=== PATIENT | male | born 1960 | race Caucasian/White ===

== ENCOUNTER 2023-11-07 07:58 | Emergency (ER) | payer MEDICARE, OTHER, SELFPAY ==
[2023-11-07 08:10] VITALS: BP 118/84
--- NOTE | 2023-11-07 08:16 | ED.GENMED ---
History of Present Illness
General
Chief Complaint: Heart Rate Problem
Time Seen by Provider: 11/07/23 08:16
History of Present Illness
History of Present Illness:
HPI: Patient has history of A-fib 30 years ago (not on any medications) and feels that his heart was fluttering as he woke up at 6 AM. He never had any chest pain or pressure. He says he feels well-hydrated. He was out in the heat for several
hours yesterday but frequently was drinking water. He had COVID about a week ago and still has some minimal congestion.
EXAM:
GENERAL: Well appearing in no distress
HEENT: Moist oral mucosa
CARDIOVASCULAR: No murmurs, normal heart rate, regular rhythm, No chest wall tenderness
PULMONARY: No respiratory distress, breath sounds are clear and equal
ABDOMEN: Soft with no peritoneal signs, no tenderness
NEUROLOGIC: Excellent strength all extremities, no coordination deficits
PSYCHIATRIC: Appropriate mental status, normal insight and judgement
EXTREMITIES: Nontender, no edema, moves all extremities equally
SKIN: No rash, no lesions
TIME OF INITIAL ENCOUNTER: 8:20 AM
NUMBER AND COMPLEXITY OF PROBLEMS ADDRESSED AT THE ENCOUNTER
� Chronic conditions affecting care: Remote history of A-fib not currently anticoagulated
� Acute Exacerbation and/or Progression of Chronic Illness: This is an acute problem
� Differential Diagnosis includes: Electrolyte normality, dehydration, thyroid disease, recurrence of A-fib
AMOUNT AND/OR COMPLEXITY OF DATA TO BE REVIEWED AND ANALYZED
� I performed an independent evaluation of and my interpretation is:
EKG: Sinus 78, left axis deviation, no acute ST abnormality
CT:
X-rays:
Laboratory Studies: CBC normal, BUN slightly elevated, TSH, magnesium, potassium all normal
Other:
� Review of other/old records: The patient had colonoscopy in 2022 and some polyps were removed at that time
� Clinical information was obtained by an independent historian: Spoke to at bedside
� Prescriptions/Medications Considered but not given:
� Further testing considered but not performed:
RISK OF COMPLICATIONS AND/OR MORBIDITY OR MORTALITY OF PATIENT MANAGEMENT
� Social determinants of health affecting care: Lives at home
� Discussion with other providers:
� Escalation of care including admission/observation vs risk of discharge considered: Throughout patient stay in the ED, there is been no sign of dysrhythmia. Basic labs normal. He states he has seen a electrical repairer through
[employer] in the past but greater than 5 years ago. He says he has their contact information at home and I encouraged him to follow-up with them as well.
Past History
Past History
ED Past Medical History: Arrthythmia (a-fib >20yrs)
ED Past Surgical History: Orthopedic
Social History
Tobacco: Former smoker
Alcohol: None
Drug: None
Personal:
Living: with family
Family History
Family History: Early CAD (father)
Phy Exam
Physical Exam
Physical Exam:
See HPI
Course
Orders/Labs/Results
Orders:
Orders
11/07/23 08:10
Electrocardiogram (*1) Urgent
Reason for Study: Chest Pain
EKG- Treatment ONCE
11/07/23 08:39
Basic Metabolic Panel Urgent
Complete Blood Count/With Diff Urgent
Magnesium Urgent
TSH Reflex To Free T4 Urgent
Abnormal Lab Results
11/07/23
08:39
MCH 31.4 H pg
(27.0-31.0)
Immature Gran % 0.8 H %
(0-0.5)
Monocytes % 11.0 H %
(1.7-9.3)
BUN 25 H mg/dl
(9-20)
11/07/23 08:39
11/07/23 08:39
Vital Signs
Initial and Last Documented VS:
Initial Vital Signs
Temp Pulse Resp BP Pulse Ox
97.9 F 93 16 118/84 16
11/07/23 08:10 11/07/23 08:10 11/07/23 08:10 11/07/23 08:10 11/07/23 08:10
Last Documented Vital Signs
Temp Pulse Resp BP Pulse Ox
97.9 F 67 17 128/80 98
11/07/23 08:10 11/07/23 11:15 11/07/23 11:15 11/07/23 11:00 11/07/23 09:03
*Critical Care Note
Total Time (30-74mins, 75-104mins- exclusive of procedures): Not Applicable
ED Attending Note
-
Portions of this chart may have been created with voice recognition software.� Occasional wrong word or��sound alike� substitutions may have occurred due to the inherent limitations of voice recognition software.
Discharge Plan
Departure
Patient Disposition: Home (Routine Discharge)
Date of Disposition: 11/07/23
Time of Disposition: 11:33
Patient with high blood pressure during this ER visit?: Yes
Discharge Problem:
Palpitations
Instructions: Palpitations (DC)
Prescriptions:
No Action
aspirin [Federico Low Dose Aspirin] 81 MG tablet,delayed release (DR/EC)
81 mg PO DAILY
fegpl-0l-gva-epa-fish oil [Fish Oil] 1 EACH capsule
1 ea PO DAILY
wicbfdqmicq-ftkdyhikm-wkz C-Mn 1 CAP capsule
2 cap PO DAILY
ginkgo biloba 40 MG capsule
40 mg PO DAILY
Zyrtec-D Tablet
5 mg PO BID
Patient Comments:
zyrtec D. taken for hornet stings. Last dose 12/14/20 at 0800. Took BID
polyethylene glycol 3350 17 GRAMS powder in packet
17 grams PO DAILYPRN PRN (Reason: constipation) Qty: 1 0RF
acetaminophen [Tylenol Extra Strength] 500 MG tablet
1,000 mg PO Q6HPRN PRN (Reason: mild pain) Qty: 1 0RF
ibuprofen 200 MG tablet
400 - 600 mg PO Q6HPRN PRN (Reason: moderate pain) Qty: 1 0RF
Referrals:
Giancarlo Ballesteros MD [Family Provider] -
Activity Restrictions/Additional Instructions:
Follow-up with your electrical repairer. Basic blood work is normal. Return here if worse.
Interventions
Interventions:
*Risk Screen - Suicide Last Done: 11/07/23 09:03
*General Assessment Last Done: 11/07/23 09:03
*Neglect/Abuse Screening Last Done: 11/07/23 09:03
ED- Fall Risk Assessment Last Done: 11/07/23 09:03
*ED COVID-19 Vaccine History Last Done: 11/07/23 08:10
ED- Cardiac Assessment Last Done: 11/07/23 09:03
ED- Pulmonary Assessment Last Done: 11/07/23 09:03
Discharge Date and Time
Print Language: GERMAN
[2023-11-07 08:17] VITALS: BP 121/72
[2023-11-07 08:52] LABS: % Basophils 1.2 % (0-2); % Eosinophils 2.9 % (0-6); % Immature Granulocytes 0.8 % (0-0.5); % Lymphocytes 29.6 % (20.5-51.1); % Neutrophils 54.5 % (42.2-75.2); Absolute Basophils 0.1 10^3/uL (0-0.2); Absolute Eosinophils 0.1 10^3/uL (0-0.7); Absolute Lymphocytes 1.5 10^3/uL (1.2-3.4); Absolute Monocytes 0.5 10^3/uL (0.1-0.6); Absolute Neutrophils 2.7 10^3/uL (1.4-6.5); Hematocrit 45.9 % (39.0-52.0); Hemoglobin 15.6 g/dL (13.0-18.0); Mean Corpuscular Hgb 31.4 pg (27.0-31.0); Mean Corpuscular Volume 92.4 fL (80.0-94.0); Mean Platelet Volume 8.5 fL (7.4-10.4); Nucleated Red Blood Cells % 0 % (-); Platelet Count 341 10^3/uL (130-400); Red Blood Cell Count 4.97 10^6/uL (4.70-6.10); Red Cell Dist. Width 12.6 % (11.5-14.5); White Blood Cell Count 4.9 10^3/uL (4.8-10.8)
[2023-11-07 09:00] VITALS: BP 124/85
[2023-11-07 09:02] LABS: Blood Urea Nitrogen 25 mg/dl (9-20); Calcium 9.2 mg/dl (8.4-10.2); Carbon Dioxide 28 mmol/L (22-30); Chloride 107 mmol/L (98-107); Glucose 93 mg/dl (70-99); Magnesium 2.2 mg/dl (1.6-2.3); Potassium 4.4 mmol/L (3.5-5.1); Sodium 139 mmol/L (135-145); eGFR > 60.00
[2023-11-07 09:03] VITALS: BMI 26.9
[2023-11-07 09:33] LABS: TSH Reflex To Free T4 2.39 uIU/ml (0.47-4.68)
[2023-11-07 10:00] VITALS: BP 111/80
[2023-11-07 11:00] VITALS: BP 128/80
== END 2023-11-07 11:45 | disposition home or self-care (01) ==
LOC: EMR 07:58
PROVIDERS: EMERGENCY PHYSICIAN Emergency Medicine; FAMILY PHYSICIAN Family Medicine
DX: R00.2 Palpitations (principal); I48.91 Unspecified atrial fibrillation; Z87.891 Personal history of nicotine dependence
CPT/HCPCS: 99284; 80048; 83735; 84443; 85025; 93005

== ENCOUNTER → 2024-05-17 09:04 | Outpatient (REF) | payer MEDICARE, OTHER, SELFPAY ==
[2024-05-17 12:04] LABS: PSA, Total - Diagnostic 5.53 ng/ml (0.0-4.0)
== END ==
LOC: REG 09:04
PROVIDERS: ATTENDING PHYSICIAN Specialist; FAMILY PHYSICIAN Family Medicine
DX: C61 Malignant neoplasm of prostate (principal)
CPT/HCPCS: 36415; 84153

== ENCOUNTER → 2024-05-21 09:34 | Outpatient (REF) | payer MEDICARE, OTHER, SELFPAY | LOC: MRI 3T 09:34 | PROVIDERS: ATTENDING PHYSICIAN Specialist; FAMILY PHYSICIAN Family Medicine | DX: C61 Malignant neoplasm of prostate (principal) | CPT/HCPCS: 72197; A9575 ==

== ENCOUNTER 2024-10-02 06:07 | Day surgery (SDC) | payer MEDICARE, OTHER, SELFPAY ==
[2024-10-02] VITALS (8 sets, daily range): BP systolic 118–140; BP diastolic 68–75; BMI 25.0
[2024-10-02] MEDS: TYLENOL 1000 MG PO (06:58)
[2024-10-02] MEDS: NORMOSOL-R/PLASMALYTE-A 1000 IV (06:59)
--- NOTE | 2024-10-02 07:29 | W.SUR.PREOP ---
Pre-Operative Surgical Note
-
I have examined this patient prior to the performance of the scheduled procedure.
The patient's condition is unchanged from the time of the current History and
Physical and the patient is able to undergo the scheduled procedure.
--- NOTE | 2024-10-02 09:32 | W.IMMPOSTOP ---
Surgical Immed Post Op Note
-
Primary Surgeon: Alvino Mancilla MD
Assisting Surgeon: None
Pre-op Diagnosis: Left inguinal hernia
Post-op Diagnosis: Same
Procedure Performed:
1. Open left inguinal hernia repair with mesh
2. Pragmatic left inguinal neurectomy x 2
Anesthesia Type: General
Specimen / Cultures:
Inguinal nerves x 2
Estimated Blood Loss: 3 cc
Complications: None
Operative Findings: Small left indirect inguinal hernia containing epiploic fat, reduced and high ligation performed. No direct component. 2 small cord lipomas ligated and removed. The inguinal canal was then reinforced with a Bard soft 10 x 15
cm uncoated polypropylene mesh secured at the pubic tubercle, along the shelving edge and in the conjoined tendon. The mesh was slit to accommodate the cord and then reapproximated.
--- NOTE | 2024-10-02 09:36 | OR.RPT ---
Operative Report
Operative Report
Patient Name: Jose Billingsley
: 1960
Date of Operation: 10/02/2024
Preoperative Diagnosis: Reducible Inguinal hernia, left
Postoperative Diagnosis: Same
Procedure(s):
1. Open Inguinal Hernia Repair
2. Left inguinal pragmatic neurectomy x 2
Surgeon(s):
Dr. Mancilla
Shed Workers Supervisor(s):
SABA March
Anesthesia: General/LMA
Estimated Blood Loss: 3 cc
Urine Output: None
Drains/Lines/Implants: 3 x 6 inch Bard soft mesh cut to size
Specimens: None
Indication for surgery: The patient has a history of groin pain and some asymmetry noted on exam and was found to have a left inguinal Hernia. Following review of therapeutic options they has elected to undergo an open repair
Operative Findings: Small left indirect inguinal hernia containing epiploic fat, reduced and high ligation performed. No direct component. 2 small cord lipomas ligated and removed. The inguinal canal was then reinforced with a Bard soft 10 x 15
cm uncoated polypropylene mesh secured at the pubic tubercle, along the shelving edge and in the conjoined tendon. The mesh was slit to accommodate the cord and then reapproximated.
Details of the operation:
After induction of general anesthesia and placement of an LMA, the patient was clipped, prepped and draped in the supine position. A team timeout was performed confirming administration of DVT prophylaxis, IV antibiotics and SCDs. The ASIS and pubic
tubercle were marked and an incision was chosen along the course of a skin line. The skin was anesthetized with Lidocaine. An incision was made through the skin line and dissection carried down through subcutaneous tissue and Jenna's fascia. The
superficial epigastric vein was identified and ligated. A Small Satya wound retractor was used to provide exposure. The external oblique fibers were then divided in the direction of travel. The ilioinguinal and iliohypogastric nerves were
identified and there a typical anatomic positions. Given their proximity to our planned placement of the mesh these were dissected, ligated at the level of the muscle and sacrificed in a pragmatic fashion. Dissection was carried down to the floor,
which revealed the following:
At the site of the indirect (internal) ring, there was a small hernia sac which was identified, dissected and reduced off the cord structures, and a high ligation was performed.
A cord lipoma x2 was also identified and reduced.
The direct space, floor of the canal revealed no weakness.
The floor of the canal was then reconstructed by placing a 15 x 10 cm BARD soft polypropylene mesh trimmed to size and secured it in place with interrupted 0-PDS sutures medially at the pubic tubercle, inferiorly along the inguinal ligament,
laterally/superiorly in the conjoint tendon. A slit was made in the mesh just wide enough to accommodate the cord this was also reapproximated with the PDS suture. Care was taken not to injure or entrap any nerves. The external oblique fibers were
then closed using a running 2-0 Vicryl suture. Jenna's fascia was then closed with interrupted 3-0 Vicryl suture. The skin was closed in layers with interrupted 3-0 vicryl deep dermals followed by a running subcuticular 4-0 Monocryl followed by
dermabond. The patient returned to the Recovery Room in stable condition. Sponge and instrument counts were correct.
I was the attending physician and performed the procedure with assistance of the PA above. The assistance of SABA March was required due to the complexity of the procedure. During the procedure Yessenia assisted with retraction, resection, and
closure of the wound. I was present for all portions of the case, excluding skin closure.
Alvino Mancilla MD
== END 2024-10-02 10:50 | disposition home or self-care (01) ==
LOC: SDS 06:07
PROVIDERS: ATTENDING PHYSICIAN Surgery
DX: K40.90 Unilateral inguinal hernia, without obstruction or gangrene, not specified as recurrent (principal); D17.6 Benign lipomatous neoplasm of spermatic cord
CPT/HCPCS: 49505; 88304

== ENCOUNTER 2024-10-29 13:33 | Inpatient (IN) | payer MEDICARE, OTHER, SELFPAY ==
[2024-10-29] VITALS (42 sets, daily range): BP systolic 81–160; BP diastolic 58–139; BMI 24.4
[2024-10-29 07:42] LABS: % Basophils 2.1 % (0-2); % Eosinophils 19.8 % (0-6); % Immature Granulocytes 0.3 % (0-0.5); % Lymphocytes 27.3 % (20.5-51.1); % Monocytes 10.2 % (1.7-9.3); % Neutrophils 40.3 % (42.2-75.2); Absolute Basophils 0.1 10^3/uL (0-0.2); Absolute Eosinophils 1.3 10^3/uL (0-0.7); Absolute Lymphocytes 1.7 10^3/uL (1.2-3.4); Absolute Monocytes 0.6 10^3/uL (0.1-0.6); Absolute Neutrophils 2.5 10^3/uL (1.4-6.5); Hemoglobin 15.8 g/dL (13.0-18.0); Mean Corp Hgb Conc. 33.6 g/dL (33.0-37.0); Mean Corpuscular Hgb 31.9 pg (27.0-31.0); Mean Corpuscular Volume 94.9 fL (80.0-94.0); Mean Platelet Volume 8.8 fL (7.4-10.4); Nucleated Red Blood Cells % 0 % (-); Platelet Count 250 10^3/uL (130-400); Red Blood Cell Count 4.95 10^6/uL (4.70-6.10); Red Cell Dist. Width 12.7 % (11.5-14.5); White Blood Cell Count 6.3 10^3/uL (4.8-10.8)
[2024-10-29 08:10] LABS: Troponin I < 0.012 ng/ml
--- NOTE | 2024-10-29 08:18 | ED.GENMED ---
History of Present Illness
General
Chief Complaint: Heart Rate Problem
Source: patient
Time Seen by Provider: 10/29/24 07:58
History of Present Illness
History of Present Illness:
This patient is a 63-year-old male who went to bed feeling his usual self. He awoke at approximately 2:30 AM feeling like there was 'shaking' also described as 'vibration' in his chest. He had awoken to go to the bathroom and that is when he
noticed the symptoms. He went back to bed and when he woke up this morning he noted continued symptoms associated with feeling his pulse and noting it was 'erratic'. He denies other symptoms such as diaphoresis, nausea, vomiting, back pain, neck
pain, headache, dizziness. He denies dyspnea at rest but noted very slight dyspnea when he walked the stairs today. Patient states he had the very same similar symptoms 32 years ago was diagnosed with an episode of A-fib. He did have similar
symptoms 2 months ago, but did not seek medical care because his symptoms fully resolved. Patient is very active and walks yesterday 3.5 miles at a brisk pace without symptoms. He describes feeling perfectly well when he went to bed last night.
He denies associated leg swelling, recent immobilization, recent trauma, personal or family history of DVT, recent fever, chills, stimulant use, heavy caffeine use, or other complaint/findings.
Past History
Past History
ED Past Medical History: Arrthythmia (a-fib >20yrs) and Other (Early stage prostate cancer currently under surveillance described as 'low risk')
ED Past Surgical History: Orthopedic and Other (Hernia)
Social History
Tobacco: Former smoker
Alcohol: Occasional
Drug: None
Personal:
Living: with family
Family History
Family History: Early CAD (father)
Phy Exam
Physical Exam
Physical Exam:
GENERAL: Alert , in no apparent distress
EYE: pupils equal and reactive
NECK: Supple, no significant adenopathy.
ENT: o/p clr, mmm.
CARDIAC: Irregularly irregular, tachycardic
LUNGS: Clear breath sounds bilaterally, no acute respiratory distress,
ABDOMEN: Soft, without focal tenderness, no r/g, no cvat
NEUROLOGICAL: Alert and oriented, no focal neuro deficits
SKIN: Warm and dry, skin intact.
MUSCULOSKELETAL: No edema, well perfused.
PSYCH: Normal and appropriate interaction.
Scores
[id number] Score for Afib Stroke Risk
Age in Years (65=0, 65-74=1, >/=75=2): 65-74
Sex (Female=+1): Male
Congestive Heart Failure History (Yes=+1): No
Hypertension History (Yes=+1): No
Stroke/TIA/Thromboembolism History (Yes=+2): No
Vascular Disease History (Yes=+1): No
Diabetes Mellitus (Yes=+1): No
Score: 1
Anticoagulation Recommendations: Consider anticoagulation (as validated in nonvalvular fib)
Course
Orders/Labs/Results
Orders:
Orders
10/29/24 06:48
ECG [Electrocardiogram (*1)] Urgent
Reason for Study: Shortness of Breath
EKG- Treatment ONCE
10/29/24 07:23
CXR2 [CR Chest - 2 Views ] Urgent
Comment:
Reason For Exam: palp
10/29/24 07:25
Complete Blood Count/With Diff Urgent
Comprehensive Metabolic Panel Urgent
TSH Urgent
Comment: ADD ON
Troponin I Urgent
10/29/24 08:22
Diltiazem 125 mg/125 ml Nss [Cardizem] 125 mg in 125 ml IV NOW
Initial dose in mg/hr, then titrate:: 5
Titrate to keep:: Heart rate 80-100 bpm
Titrate by mg/hr:: 5 mg/hr
Frequency of titrations (minutes):: 15
Maximum dose in mg/hr:: 15
Diltiazem HCl [Cardizem] 20 mg IV NOW STA
10/29/24 08:41
Add On- LAB Urgent
Tests Added?: tsh
10/29/24 10:20
Heparin 4,000 units IV NOW STA
Pharmacy Request to Place See Dose Instructions PO NOW STA
Discontinue all Active Warfarin orders?: Yes
10/29/24 10:[address] Non Medication Order As Directed
Physician Order: PTT 6 hours after initial start of Heparin infusion
Above order entered?: Yes
10/29/24 10:30
Heparin 13375 Units/250 ml 25,000 units in 250 ml IV PER PROTOCOL
Weight to be used for heparin protocol in kilograms (kg):: 88.451
Protocol:: Cardiac Tx/Acute Coronary
PTT Goal Range to be used:: PTT 73 to 111 seconds
Order type:: Initial
INITIAL Infusion Dose (UNITS/KG/hr) & then follow protocol:: 15 units/kg/hr
Infusion Dose in UNITS/hr & then follow protocol (UNITS/hr):: 1,350
INFUSION RATE in mL/hr & then follow protocol (mL/hr):: 13.5
PTT less than or equal to 64 seconds:: Increase rate by 200 units/hr (+ 2 mL/hr)
PTT 64.1 to 72.9 seconds:: Increase rate by 100 units/hr (+ 1 mL/hr)
PTT 73 to 111 seconds:: Target Range. No change in rate.
PTT 111.1 to 130.9 seconds:: Decrease rate by 100 units/hr (- 1 mL/hr)
PTT 131 to 199.9 seconds:: HOLD for 1 hr. Then decrease rate by 200 units/hr (- 2 mL/hr)
PTT greater than or equal to 200 seconds:: HOLD for 2 hrs & Notify Provider. Then decrease by 200 units/hr (-
2 mL/hr)
Lab follow-up:: Each change, PTT q6h until 2 consecutive are therapeutic. Then PTT
daily.
10/29/24 11:[address] See Dose Instructions IV DIRECTED
10/29/24 11:11
PTT Urgent
Comment: Obtain baseline before beginning heparin infusion if not already collected
10/29/24 11:28
CT Angio Chest W/Wo Iv Contast [CT Chest Angio W/wo Iv Contras] Urgent
Comment:
Reason For Exam: 5.1 cm thoracic aortic aneurysm in 2020
10/29/24 12:43
Admit/Transfer Patient As Directed
Co-Sign Provider:
Level of Care: Inpatient admission
Assign to:: IVU
Physician / Group: [facility]/medicine
Diagnosis: afib
Reason for Hospitalization: afib
Expected length of stay greater than two midnights?: Yes
ELOS- Estimated Length of Stay in days: 3
I certify the patient meets the requirements for IP care: Yes
10/29/24 12:44
PRN Pain Medication Management As Directed
May give lesser potent ordered pain med per pt: Yes
preference::
Protocol:: Medication orders for pain may be administered in a
manner that supports deferring to patient preference
when the pt is:
- Requesting an ordered lesser potent pain medication.
Least to most potent pain medications are defined
as: acetaminophen < NSAID < tramadol < opioids
(morphine, oxycodone, hydromorphone).
- Requesting a lesser dose of the same medication IF
ORDERED.
- Requesting a less intrusive route of administration
if both routes are prescribed by the provider (PO <
IV).
10/29/24 12:45
Code Status As Directed
Resuscitation Status: Full Code
10/29/24 13:48
Bisacodyl [Dulcolax] 10 mg RECTAL [id number] PRN
Diltiazem 125 mg/125 ml Nss [Cardizem] 125 mg in 125 ml IV PER PROTOCOL
Initial dose in mg/hr, then titrate:: 5
Titrate to keep:: Heart rate 80-100 bpm
Titrate by mg/hr:: 5 mg/hr
Frequency of titrations (minutes):: 15
Maximum dose in mg/hr:: 15
Docusate W/Senna [Senokot-S] 1 tablet PO BIDPRN PRN
Polyethylene Glycol Powder [Miralax] 17 grams PO DAILYPRN PRN
10/29/24 13:48
Heparin Protocol- PTT Orders As Directed
PTT per Heparin protocol: -Obtain CBC and baseline PTT - if not already collected.
-Obtain PTT 6 hours from start of infusion. Then, every 6 hours until 2 consecutive
PTT's are therapeutic. Then, PTT Daily.
-With each rate change, obtain PTT every 6 hours until 2 consecutive PTT's are
therapeutic. Then, PTT Daily.
Activity As Directed
Activity Level: As Tolerated
Notify MD As Directed
Notify physician if: PTT is greater than or equal to 200.
Pneumatic Compression Sleeves As Directed
Type: Knee high
Vital Signs As Directed
Frequency: Per unit guidelines
DX Deep Vein Thrombosis Video Routine
10/29/24 17:29
PTT Routine
Troponin I Q6H
10/29/24 21:48
Troponin I Q6H
10/30/24 05:55
Complete Blood Count/With Diff IN AM
Comprehensive Metabolic Panel IN AM
10/30/24 08:00
omega 6-sye-rry-fish oil [Fish Oil] 1 cap PO DAILY
10/31/24 06:00
Complete Blood Count/No Diff Q2D
Comment: notify provider: Platelet count < 130,000 or decrease by 50% from baseline
11/02/24 06:00
Complete Blood Count/No Diff Q2D
Comment: notify provider: Platelet count < 130,000 or decrease by 50% from baseline
11/04/24 06:00
Complete Blood Count/No Diff Q2D
Comment: notify provider: Platelet count < 130,000 or decrease by 50% from baseline
11/06/24 06:00
Complete Blood Count/No Diff Q2D
Comment: notify provider: Platelet count < 130,000 or decrease by 50% from baseline
11/08/24 06:00
Complete Blood Count/No Diff Q2D
Comment: notify provider: Platelet count < 130,000 or decrease by 50% from baseline
11/10/24 06:00
Complete Blood Count/No Diff Q2D
Comment: notify provider: Platelet count < 130,000 or decrease by 50% from baseline
11/12/24 06:00
Complete Blood Count/No Diff Q2D
Comment: notify provider: Platelet count < 130,000 or decrease by 50% from baseline
11/14/24 06:00
Complete Blood Count/No Diff Q2D
Comment: notify provider: Platelet count < 130,000 or decrease by 50% from baseline
Abnormal Lab Results
10/29/24
07:25
MCV 94.9 H fL
(80.0-94.0)
MCH 31.9 H pg
(27.0-31.0)
Absolute Eos (auto) 1.3 H 10^3/uL
(0-0.7)
Neutrophils % 40.3 L %
(42.2-75.2)
Monocytes % 10.2 H %
(1.7-9.3)
Eosinophils % 19.8 H %
(0-6)
Basophils % 2.1 H %
(0-2)
Chloride 109 H mmol/L
(98-107)
Glucose 104 H mg/dl
(70-99)
Total Protein 6.2 L g/dl
(6.3-8.2)
10/29/24 07:25
10/29/24 07:25
Vital Signs
Initial and Last Documented VS:
Initial Vital Signs
Temp Pulse Resp BP Pulse Ox
97.8 F 155 20 136/64 98
10/29/24 06:52 10/29/24 06:52 10/29/24 06:52 10/29/24 06:52 10/29/24 06:52
Last Documented Vital Signs
Temp Pulse Resp BP Pulse Ox
98.1 F 49 16 94/61 96
10/30/24 11:39 10/30/24 12:30 10/30/24 11:39 10/30/24 12:30 10/30/24 11:38
*Critical Care Note
Total Time (30-74mins, 75-104mins- exclusive of procedures): 31
Update Note
Update Note:
Patient presents to the Emergency Department with __vibration in chest since 2:30 AM
Number and Complexity of Problems Addressed at the Encounter
� Chronic conditions affecting care:
� Acute Exacerbation and/or Progression of Chronic Illness:
� Differential Diagnosis includes: But not limited to A-fib, a flutter, SVT, ACS, etc. etc.
Amount and/or Complexity of Data to be Reviewed and Analyzed
� I performed an independent evaluation of and my interpretation is:
EKG: Read by me, A-fib with RVR, no acute ischemia
CT:
Xrays: Chest x-ray read by me NAD
Laboratory Studies: Generally unremarkable, TSH pending
Other:
� Review of other/old records reveals: Most recent echocardiogram revealsNormal left ventricular chamber size. Normal left ventricular systolic
function. Mild concentric left ventricular hypertrophy. Left ventricular
ejection fraction is 55-60%.
Mild to moderate aortic regurgitation.
Dilated aortic root measuring 4.9 cm at sinuses of Valsalva, 4.8 cm ascending
aorta.
Compared to previous echo from April 2019 which was reviewed, findings are
similar.
� Clinical information was obtained by an independent historian:
� Prescriptions/Medications Considered but not given:
� Further testing considered but not performed:
Risk of Complications and/or Morbidity or Mortality of Patient Management
� Social determinants of health affecting care:
� Discussion with other providers (PCP, Hospitalists, Consultants, etc):
� Escalation of care including admission/observation vs risk of discharge considered: 10:22 AM multiple reassessments, patient's rate is closer to normal in the low 100s on a Cardizem drip at 15. Case discussed with his
edging machine operator, Dr. Jes WAGNER, aware of history physical etc. Also adds that patient has a history of sleep apnea for which she has declined treatment. Plan will be admission, IV heparin, continue Cardizem, discussed with hospitalist mohini there, I have
a patient in room 26 for admission
ED Attending Note
-
Portions of this chart may have been created with voice recognition software.� Occasional wrong word or��sound alike� substitutions may have occurred due to the inherent limitations of voice recognition software.
Discharge Plan
Departure
Patient Disposition: Admit
Date of Disposition: 10/29/24
Time of Disposition: 10:25
Admit to: Telemetry
Presentation/result/management discussed w/ accepting MD/DO: Hospitalist
Discharge Problem:
Atrial fibrillation
Interventions
Interventions:
*Risk Screen - Suicide Last Done: 10/29/24 06:52
*Neglect/Abuse Screening Last Done: 10/29/24 06:52
*ED- Fall Risk Assessment Last Done: 10/29/24 07:26
*ED COVID-19 Vaccine History Last Done: 10/29/24 07:26
*Nursing Disposition Last Done: 10/29/24 13:44
ED- Cardiac Assessment Last Done: 10/29/24 07:26
ED- Pulmonary Assessment Last Done: 10/29/24 07:26
Discharge Date and Time
Discharge Date/Time: 10/29/24 13:44
[2024-10-29 08:19] LABS: ALT (SGPT) 16 U/L (0-50); AST (SGOT) 24 U/L (17-59); Albumin 3.8 g/dl (3.5-5.0); Alkaline Phosphatase 54 U/L (38-126); Blood Urea Nitrogen 17 mg/dl (9-20); Calcium 9.4 mg/dl (8.4-10.2); Carbon Dioxide 28 mmol/L (22-30); Chloride 109 mmol/L (98-107); Estimated Creatinine Clearance 88 ml/min; Glucose 104 mg/dl (70-99); Potassium 4.3 mmol/L (3.5-5.1); Sodium 142 mmol/L (135-145); Total Bilirubin 0.6 mg/dl (0.2-1.3); Total Protein 6.2 g/dl (6.3-8.2); eGFR > 60.00
[2024-10-29] MEDS: CARDIZEM 20 MG IV (08:35)
[2024-10-29] MEDS: CARDIZEM 125 IV (08:36)
[2024-10-29 11:06] LABS: TSH 4.62 uIU/ml (0.47-4.68)
[2024-10-29] MEDS: HEPARIN 4000 UNITS IV (11:42)
[2024-10-29] MEDS: HEPARIN 25000 UNITS/250 ML IV (11:43)
[2024-10-29 11:53] LABS: APTT 27.5 Sec (23.4-35.0)
--- NOTE | 2024-10-29 13:30 | CON.CAR ---
Addendum entered and electronically signed by Hermelindo Oneal DO 10/29/24 20:49:
I saw and examined the patient.
The Android Architect's note was reviewed and I agree with the note.
Comment:
Plan:
Cont IV Cardizem and add Metoprolol for better HR control
NATALEE/cv in AM if fails to convert
Anticoagulation with Eliquis
Eventual consideration for EP eval and PVI for recurrent PaFib
Discussed that he is at risk of recurrent aFib with poorly controlled EVAN and alcohol intake. He states he is drinking less and motivated to see pulm for eval of EVAN and reconsideration of CPAP.
Check CT angio of thoracic aorta as he has been lost to follow up for thoracic aortic aneurysm.
Discussed with ER.
1.Atrial fibrillation
-Remote diagnosis of A-fib in 1994, none known since then although he has been having palpitations intermittently
- Currently in A-fib with rapid ventricular response, heart rates improved on Cardizem gtt
-consider transition to beta jenn once better rate control achieved
-On heparin gtt, transition to Eliquis 5 mg twice daily. Patient agreeable to start OAC
-[id number]-[id number] score 1, age
-NATALEE/cardioversion tomorrow if he does not spontaneously convert to normal sinus rhythm, make n.p.o. after midnight
-Follow-up with pulmonary for history of sleep apnea. Patient previously tried CPAP and was not able to tolerate mask. This was approximately 10 years ago
- Reduce alcohol intake
- Follow-up with EP in outpatient setting
-TSH 4.62
-check echo given new afib
2. Thoracic aortic dilatation
- Ascending thoracic aorta 5.[address] angiography 2020. Has not been repeated since then.
- Repeat CTA today, 10/29/2024, shows aneurysmal dilatation of the ascending aorta up to 5.2 cm, either unchanged or minimally increased compared to 2020. CTA also showed calcific atherosclerotic changes and small amount of coronary artery
calcification
- keep BP well controlled, currently low 100s/70s
3.Sleep apnea
- f/u with pulmonary in outpt setting to consider retrying CPAP.
4.hyperlipidemia
-last LDL 133 08/2020
-repeat FLP
-goal LDL at least <100, given FH CAD
Original Note:
Consultation
Consultation Request
Date/Time Consultation Requested: 10/29/2024, 1023
Date/Time Consultation Performed: 10/29/2024, 1130
Requesting Provider: Dr De Souza
Performing Provider: YAZAN Tamez for Dr Oneal
Reason for Consultation: afib
Medical History
-
Chief Complaint: palpitations
History of Present Illness:
63-year-old male with history of ascending aortic dilatation, palpitations, hyperlipidemia, sleep apnea, recent left inguinal hernia reduction 10/02/2024, recent diagnosis of early-stage prostate cancer currently under surveillance presented to ED
with palpitations. He awoke around 2:30 AM to go to the bathroom and noticed an abnormal sensation in his chest. He felt short of breath walking up steps and could feel his heart vibrating. No chest pain, dizziness, nausea, vomiting, diaphoresis.
EKG upon presentation A-fib with rapid ventricular response, heart rate 155 bpm.
Patient previously followed by Dr. Oneal, last seen in 2020. He reports a previous episode of palpitations about 2 months ago but they resolved after 2 hours and he did not present for evaluation. He also reports similar symptoms approximately 32
years ago when in [place] and reports he was diagnosed with an episode of A-fib at that time.
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 Walks 3-1/2 miles regularly without symptoms.
Admits to alcohol 5-6 times a week, 1-2 drinks per day. He is cutting down on alcohol and previously drank more. He is also cutting down on caffeine. Quit smoking over 40 years ago.
Past medical history:
Ascending aortic dilatation (5.1 cm on CTA 2020) Has not been checked since then
Remote episode atrial fibrillation in 1994
Hyperlipidemia
Sleep apnea
Early-stage prostate cancer
Palpitations
Recent left inguinal hernia reduction 10/02/2024
Umbilical hernia 2022
Left knee surgery 2021
Past Medical History
Past Medical History: Other (As above)
Past Surgical History: Other (As above)
Social History
Tobacco: Former Smoker (Quit 40 years ago)
Alcohol: Daily (5 to 6 days a week, 1-2 drinks each day)
Family History
Family History: Other (Father VT age 45, age 69)
Allergies / Home Medications
Allergy/AdvReac Type Severity Reaction Status Date / Time
monosodium glutamate Allergy Nausea Verified 10/29/24 06:55
tree and shrub pollen Allergy congestion Verified 10/29/24 06:55
pectin Allergy Unknown Uncoded 10/29/24 06:55
�Medication �Instructions �Recorded �Confirmed �Type
knahxwdjeio-pjagbnvgk-npi C-Mn 500 2 cap PO DAILY 05/06/17 10/29/24 History
mg-400 mg capsule
ginkgo biloba 400 mg capsule 400 mg PO DAILY ##0 09/27/24 10/29/24 History
ibuprofen 200 mg tablet 400 mg PO HSPRN PRN muscle soreness 09/27/24 10/29/24 History
omega 2-hud-xtq-fish oil 1,000 mg 1 cap PO DAILY ##0 09/27/24 10/29/24 History
(120 mg-180 mg) capsule (Fish Oil)
Review of Systems
-
History Source: Patient
All other systems: Negative unless noted
Physical Exam
Vital Signs
Temp Pulse Resp BP Pulse Ox
97.8 F 112 16 100/65 96
10/29/24 06:52 10/29/24 08:37 10/29/24 08:37 10/29/24 08:37 10/29/24 08:37
Lab Results
10/29/24 07:25
10/29/24 07:25
Troponin I < 0.012 ng/ml 10/29/24 07:25
GEN: No distress, awake, Ox3
HEENT: supple, anicteric, mmm
LUNGS: CTA, no wheezes/rales
CV: Tachy, irregular irregular, no murmur
ABD: soft, BS+, NT/ND
EXT: No edema
NEURO: Gross non-focal
SKIN: No rash
Impression / Plan
-
PCP:Giancarlo Ballesteros
Primary registered nurse cardiac telemetry: Dr. Oneal
Impression
A-fib with RVR, new onset
Thoracic aortic dilatation
Hyperlipidemia
Sleep apnea, not on CPAP
Family history of premature CAD
Prostate cancer
Hernia surgery 09/2024
Previous cardiovascular diagnostic testing:
Echocardiogram 08/25/2020: Normal LV/RV size and function, LVEF 55 to 60%, indexed LA volume within normal range, mild to moderate AI, dilated aortic root. Sinus of Valsalva 4.9 cm, ST junction 4.9 cm, ascending aorta 4.[address] angiography09/02/2020: Asc thoracic aorta 5.1 cm @ sinotubular junction, 4.7 cm in mid asc aorta, stable compared to 09/20/2019
Plan: 63-year-old male with history of ascending aortic dilatation, palpitations, hyperlipidemia, sleep apnea, recent left inguinal hernia reduction 10/02/2024, recent diagnosis of early-stage prostate cancer currently under surveillance presented to
ED with palpitations. He awoke around 2:30 AM to go to the bathroom and noticed an abnormal sensation in his chest. He felt short of breath walking up steps and could feel his heart vibrating. No chest pain, dizziness, nausea, vomiting,
diaphoresis. EKG upon presentation A-fib with rapid ventricular response, heart rate 155 bpm.
1.Atrial fibrillation
-Remote diagnosis of A-fib in 1994, none known since then although he has been having palpitations intermittently
- Currently in A-fib with rapid ventricular response, heart rates improved on Cardizem gtt
-consider transition to beta jenn once better rate control achieved
-On heparin gtt, transition to Eliquis 5 mg twice daily. Patient agreeable to start OAC
-[id number] score 1, age
-NATALEE/cardioversion tomorrow if he does not spontaneously convert to normal sinus rhythm, make n.p.o. after midnight
-Follow-up with pulmonary for history of sleep apnea. Patient previously tried CPAP and was not able to tolerate mask. This was approximately 10 years ago
- Reduce alcohol intake
- Follow-up with EP in outpatient setting
-TSH 4.62
-check echo given new afib
2. Thoracic aortic dilatation
- Ascending thoracic aorta 5.[address] angiography 2020. Has not been repeated since then.
- Repeat CTA today, 10/29/2024, shows aneurysmal dilatation of the ascending aorta up to 5.2 cm, either unchanged or minimally increased compared to 2020. CTA also showed calcific atherosclerotic changes and small amount of coronary artery
calcification
- keep BP well controlled, currently low 100s/70s
3.Sleep apnea
- f/u with pulmonary in outpt setting to consider retrying CPAP.
4.hyperlipidemia
-last LDL 133 08/2020
-repeat FLP
-goal LDL at least <100, given FH CAD
Data Reviewed
-
EKG: Tracing Personally Visualized and interpreted
Medical Tests (Nuc Med, Echo etc): Image Personally Visualized and interpreted
Labs: Labs Reviewed by me
--- NOTE | 2024-10-29 15:28 | HPS.HSE ---
Family Physician
-
Family Physician: Giancarlo Ballesteros
Chief Complaint
-
Short of breath, abnormal sensation in the chest
History of Present Illness
63-year-old male with past medical history of ascending aortic dilation, palpitations, hyperlipidemia, sleep apnea not on CPAP, recent left inguinal hernia reduction 10/02/2024, recent diagnosis of early-stage prostate cancer currently under
surveillance now presents for palpitations. Patient had woken up 2:30 in the morning to go to the bathroom and noted to have abnormal sensation of shaking as well as vibration of his chest. Patient to go back to sleep and when he woke up this
morning continue to feel short of breath walking up the steps, feeling his heart vibrate. Patient also had similar episode atrial fibrillation 2 months ago, resolving in 2 hours I did not present for evaluation. Similar symptoms started 2 years
ago. Miss alcohol 5-6 times a week, 1-2 drinks per day, cutting down on caffeine. Evaluated in the hospital, EKG with atrial fibrillation with heart rate of 125. Started on heparin drip and diltiazem drip.
Medical History
Past Medical History
Past Medical History: Reports Other (Ascending aortic dilatation (5.1 cm on CTA 2020) Has not been checked since then Remote episode atrial fibrillation in 1994, Hyperlipidemia, Sleep apnea, Early-stage prostate cancer, Palpitations)
Past Surgical History: Reports Other ( Recent left inguinal hernia reduction 10/02/2024, Umbilical hernia 2022, Left knee surgery 2021)
Social History
Tobacco: Former Smoker (quit 40 years ago)
Alcohol: Daily (Daily (5 to 6 days a week, 1-2 drinks each day))
Family History
Family History: Other ( (Father [place] age 45, age 69))
Allergies / Home Medications
Allergies reflects when Allergies were last updated in [facility].
Home Medications with original date entered in [facility]
Allergy/Medication List:
Allergies
Allergy/AdvReac Type Severity Reaction Status Date / Time
monosodium glutamate Allergy Nausea Verified 06/16/25 06:55
tree and shrub pollen Allergy congestion Verified 10/29/24 06:55
pectin Allergy Unknown Uncoded 10/29/24 06:55
Home Medications
lahbdbbxren-kylovhkzg-tjy C-Mn 500 mg-400 mg capsule 2 cap PO DAILY 05/06/17
ginkgo biloba 400 mg capsule 400 mg PO DAILY ##0 09/27/24
ibuprofen 200 mg tablet 400 mg PO HSPRN PRN muscle soreness 09/27/24
omega 9-nzm-cpi-fish oil 1,000 mg (120 mg-180 mg) capsule (Fish Oil) 1 cap PO DAILY ##0 09/27/24
Review of Systems
-
History Source: Patient
A 12 point ROS was completed and negative except as noted: Yes
Physical Exam
Vital Signs
Vital Signs
Temp Pulse Resp BP Pulse Ox
98.1 F 122 20 106/61 97
10/29/24 13:55 10/29/24 13:00 10/29/24 13:55 10/29/24 12:00 10/29/24 13:55
Physical Exam
General: Well Developed, Well Nourished and No Apparent Distress
HEENT: NormoCephalic
Respiratory: Clear
Cardiac: Irregular Rhythm
GI: Soft and Non Tender
Musculoskeletal: No Clubbing
Skin: Warm
Neuro: Awake, Alert, Oriented and AO x 3
Hematologic/Lymphatic: No Lymphadenopathy
Psych: Calm
Laboratory Results
-
10/29/24 07:25
10/29/24 07:25
Laboratory Results
APTT 27.5 Sec (23.4-35.0) 10/29/24 11:11
Total Bilirubin 0.6 mg/dl (0.2-1.3) 10/29/24 07:25
AST 24 U/L (17-59) 10/29/24 07:25
ALT 16 U/L (0-50) 10/29/24 07:25
Alkaline Phosphatase 54 U/L (38-126) 10/29/24 07:25
Troponin I < 0.012 ng/ml 10/29/24 07:25
Data Reviewed
-
Diagnostic Radiology: Report Reviewed by me
CT Scan: Report Reviewed by me
Lab Data: Labs Reviewed by me
Impression/Plan
-
IMPRESSION:
63-year-old male now presenting for abnormal chest sensation, palpitations found to be in atrial fibrillation with RVR.
PLAN:
#Atrial fibrillation
� Continue diltiazem drip
� Continue heparin drip, Eliquis if cost is okay
� Add on low-dose beta-jenn standing
� Trend troponins
� Follow-up echocardiogram
� Reduce alcohol and caffeine intake
� NATALEE/cardioversion tomorrow if does not spontaneously convert to normal sinus rhythm next�TSH within normal limits
#Thoracic aortic dilation
� Appears to be stable at 5.2 cm on today's examination
� Follow-up vascular outpatient
� BP control
#Sleep apnea
� Patient has refused CPAP in the past
Follow-up pulmonary outpatient setting as educated of the benefits of it
#Hyperlipidemia
� Repeat LDL
� Start statin if over 100 LDL
#DVT prophylaxis
� Heparin drip
[2024-10-29] MEDS: LOPRESSOR 12.5 MG PO (15:44)
--- NOTE | 2024-10-29 17:21 | PTCARENOTE ---
pt cotninues to be afib on the monitor. hr continues to be above 140, notified mary mcginnis, ccnp, metoprolol ordered and given, see JUL. Pts BP 91/72, Cardizem gtt titrated per protocol, see JUL. notified Mary Mcginnis. pt resting in bed and
educated on plan of care and pt verbalized understanding. heparin gtt running per protocol. call shannon within reach.
[2024-10-29 17:47] LABS: APTT 31.7 Sec (23.4-35.0)
[2024-10-29] MEDS: LOPRESSOR PO (18:00)
[2024-10-29 18:36] LABS: Troponin I < 0.012 ng/ml
--- NOTE | 2024-10-29 23:32 | PTCARENOTE ---
Assumed care of the pt @ 1900. Pt is AAOx3 A fib on the monitor 80-105 Cardizem and Heparin gtts infusing. SBP 90-110 Call shannon within reach.
[2024-10-30] VITALS (12 sets, daily range): BP systolic 89–109; BP diastolic 61–76; BMI 24.7
[2024-10-30] MEDS: LOPRESSOR 12.5 MG PO ×2 (00:06→05:46)
[2024-10-30] MEDS: CARDIZEM 125 IV (00:07)
[2024-10-30 00:41] LABS: APTT 103.3 Sec (23.4-35.0)
[2024-10-30 00:53] LABS: Troponin I < 0.012 ng/ml
[2024-10-30] MEDS: HEPARIN 25000 UNITS/250 ML IV (05:44)
[2024-10-30 06:23] LABS: % Basophils 1.9 % (0-2); % Eosinophils 13.2 % (0-6); % Immature Granulocytes 0.3 % (0-0.5); % Lymphocytes 25.3 % (20.5-51.1); % Monocytes 9.3 % (1.7-9.3); Absolute Basophils 0.1 10^3/uL (0-0.2); Absolute Eosinophils 0.8 10^3/uL (0-0.7); Absolute Lymphocytes 1.5 10^3/uL (1.2-3.4); Absolute Monocytes 0.6 10^3/uL (0.1-0.6); Hematocrit 46.4 % (39.0-52.0); Hemoglobin 15.8 g/dL (13.0-18.0); Mean Corp Hgb Conc. 34.1 g/dL (33.0-37.0); Mean Corpuscular Volume 93.9 fL (80.0-94.0); Nucleated Red Blood Cells % 0 % (-); Platelet Count 243 10^3/uL (130-400); Red Blood Cell Count 4.94 10^6/uL (4.70-6.10); Red Cell Dist. Width 12.8 % (11.5-14.5); White Blood Cell Count 5.9 10^3/uL (4.8-10.8)
[2024-10-30 06:38] LABS: APTT 122.1 Sec (23.4-35.0)
[2024-10-30 06:44] LABS: ALT (SGPT) 15 U/L (0-50); AST (SGOT) 21 U/L (17-59); Albumin 3.4 g/dl (3.5-5.0); Alkaline Phosphatase 49 U/L (38-126); Blood Urea Nitrogen 15 mg/dl (9-20); Calcium 9.1 mg/dl (8.4-10.2); Carbon Dioxide 22 mmol/L (22-30); Chloride 111 mmol/L (98-107); Estimated Creatinine Clearance 110 ml/min; Glucose 107 mg/dl (70-99); Sodium 138 mmol/L (135-145); Total Bilirubin 0.8 mg/dl (0.2-1.3); Total Protein 5.6 g/dl (6.3-8.2); eGFR > 60.00
--- NOTE | 2024-10-30 08:44 | PTCARENOTE ---
Assumed care at 0700. Patient AO x3. A-fib, HR 70-80's at rest. Cardizem and Heparin infusing per JUL. NPO for NATALEE/CV today
--- NOTE | 2024-10-30 08:50 | PTCARENOTE ---
Report called to the soap slabber
--- NOTE | 2024-10-30 08:54 | CM ---
Addendum entered by Najma Velázquez 10/30/24 13:20:
Telephone call to [facility] to check on the co-pay for Eliquis 5 mg po bid. His co-pay would be $541.80 because he has not met his deductible. After he mets his deductible his co-pay would be $70.82 a month until he pays his out of pocket cost
of $2000.00. After he mets his deductible and out of pocket cost his co-pay would be zero. He is agreeable to the co-pay. Placed the one month free coupon in his red discharge folder. The discharge plan is to return home with his spouse when
medically stable.
Original Note:
Reviewed chart. Met with Mr. Billingsley to review discharge plans. He states prior to admission he resides with his spouse in a two story home with two steps to enter. He states he has a full flight of steps to get to bedroom/full bathroom. He states
he has a powder room on the first floor. He states prior to admission he was independent with ambulation and adls. He states he does not have any DME in the home. He states he has a prescription plan and uses [facility]. Medical work-up in
progress. The discharge plan is to return home with his spouse when medically stable.
--- NOTE | 2024-10-30 11:25 | W.PN.CARDCBS ---
Today's Communication / Plan
-
NATALEE cardioversion and back in sinus rhythm. Start Eliquis 5 mg p.o. twice daily and Toprol 25 mg daily. Stop IV Cardizem and heparin.
His aorta is dilated at 5.1 cm with moderate to severe aortic regurgitation. He will need CT surgery evaluation. This can likely be done as outpatient with close follow-up.
Impression / Plan
-
PCP:Giancarlo Ballesteros
Primary enrollment management vice president: Dr. Oneal
Impression
A-fib with RVR, new onset
Thoracic aortic dilatation
Hyperlipidemia
Sleep apnea, not on CPAP
Family history of premature CAD
Prostate cancer
Hernia surgery 09/2024
Previous cardiovascular diagnostic testing:
Echocardiogram 08/25/2020: Normal LV/RV size and function, LVEF 55 to 60%, indexed LA volume within normal range, mild to moderate AI, dilated aortic root. Sinus of Valsalva 4.9 cm, ST junction 4.9 cm, ascending aorta 4.[address] angiography09/02/2020: Asc thoracic aorta 5.1 cm @ sinotubular junction, 4.7 cm in mid asc aorta, stable compared to 09/20/2019
NATALEE 10/30/24: EF 50%, moderate to severe AI, Aortic root 5.1cm/Ascending Aorta 5.1cm, mild MR
Plan: 63-year-old male with history of ascending aortic dilatation, palpitations, hyperlipidemia, sleep apnea, recent left inguinal hernia reduction 10/02/2024, recent diagnosis of early-stage prostate cancer currently under surveillance presented to
ED with palpitations. He awoke around 2:30 AM to go to the bathroom and noticed an abnormal sensation in his chest. He felt short of breath walking up steps and could feel his heart vibrating. No chest pain, dizziness, nausea, vomiting,
diaphoresis. EKG upon presentation A-fib with rapid ventricular response, heart rate 155 bpm.
1.Atrial fibrillation
Back in sinus rhythm status post NATALEE cardioversion. Will start Eliquis 5 mg p.o. twice daily. Stop IV Cardizem. Start Toprol 25 mg daily.
2. Thoracic aortic dilatation
- Ascending thoracic aorta 5.[address] angiography 2020. Has not been repeated since then.
- Repeat CTA today, 10/29/2024, shows aneurysmal dilatation of the ascending aorta up to 5.2 cm, either unchanged or minimally increased compared to 2020. CTA also showed calcific atherosclerotic changes and small amount of coronary artery
calcification
-Recommend CT surgery evaluation and follow-up regarding moderate to severe aortic regurgitation and dilated aortic root/aorta
3.Sleep apnea
- f/u with pulmonary in outpt setting to consider retrying CPAP.
4.hyperlipidemia
-last LDL 133 08/2020
-repeat FLP
-goal LDL at least <100, given FH CAD
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
Subjective
Date of Service: October 30, 2024
Feels well and back in sinus rhythm
Objective
Labs:
10/30/24 05:55
10/30/24 05:55
Labs
Hgb 15.8 g/dL (13.0-18.0) 10/30/24 05:55
Hct 46.4 % (39.0-52.0) 10/30/24 05:55
Plt Count 243 10^3/uL (130-400) 10/30/24 05:55
APTT 122.1 Sec (23.4-35.0) H 10/30/24 05:55
Sodium 138 mmol/L (135-145) 10/30/24 05:55
Potassium 4.0 mmol/L (3.5-5.1) 10/30/24 05:55
BUN 15 mg/dl (9-20) 10/30/24 05:55
Creatinine 0.8 mg/dL (0.7-1.3) 10/30/24 05:55
Glucose 107 mg/dl (70-99) H 10/30/24 05:55
Troponins
06/10/29/24 10/30/24
07:25 17:29 00:17
Troponin I < 0.012 < 0.012 < 0.012
Vital Signs and I&O:
Vital Signs
Temp Pulse Resp BP Pulse Ox
97.4 F 91 18 101/76 97
10/30/24 08:38 10/30/24 08:38 10/30/24 08:38 10/30/24 08:37 10/30/24 08:38
Vital Signs
Temp Pulse Resp BP Pulse Ox
97.4 F 91 18 101/76 97
10/30/24 08:38 10/30/24 08:38 10/30/24 08:38 10/30/24 08:37 10/30/24 08:38
Intake & Output
10/28/24 10/29/24 10/30/24 10/31/24
06:59 06:59 06:59 06:59
Intake Total 480 / 480
Balance 480 / 480
Physical Exam
Physical Exam
GEN: No distress, awake, Ox3
HEENT: supple, anicteric, mmm
LUNGS: CTA, no wheezes/rales
CV: Reg, S1/S2, 1/6 syst LSB, no gallop
ABD: soft, BS+, NT/ND
EXT: No edema
NEURO: Gross non-focal
SKIN: No rash
[2024-10-30] MEDS: LOPRESSOR PO (11:36)
--- NOTE | 2024-10-30 12:08 | W.PN.UPDATE ---
Update Note
Progress Note Update
Heart rate since cardioversion in high 40s. Blood pressures 89/68. Holding beta-jenn for now and will reassess heart rates in 2 hours to determine appropriate dose of beta-jenn at discharge. Plan for discharge today as long as heart rate
stable.
[2024-10-30] MEDS: ELIQUIS 5 MG PO (12:10)
--- NOTE | 2024-10-30 12:40 | PTCARENOTE ---
Patient received from microbiology lab technician. Assisted into room. SB HR 40-50's, BP 94/61. Heparin and Cardizem discontinued. PO Eliquis given. Voided in the bathroom, lunch ordered, call shannon in reach
--- NOTE | 2024-10-30 14:23 | W.PN.UPDATE ---
Update Note
Progress Note Update
HRs in 50s, BPs low 100s/ Will discharge on Toprol 12.5 mg daily-order placed in chart. Has cardiology f/u arranged.
--- NOTE | 2024-10-30 16:33 | W.PN.HOSP.TC ---
Addendum entered and electronically signed by Hadley Das MD 10/30/24 17:41:
[id number]
Original Note:
Today's Communication/Plan
-
Heart rate medications adjusted to Toprol 12.5 mg due to lower heart rates and blood pressures
Eliquis
Follow cardiology, CT surgery, PCP outpatient
Follow-up LDL outpatient
Assessment / Plan
Assessment / Plan
Physical Exam
General: Well Developed, Well Nourished and No Apparent Distress
HEENT: NormoCephalic
Respiratory: Clear
Cardiac: Regular Rhythm
GI: Soft and Non Tender
Musculoskeletal: No Clubbing
Skin: Warm
Neuro: Awake, Alert, Oriented and AO x 3
Hematologic/Lymphatic: No Lymphadenopathy
Psych: Calm
63-year-old male now presenting for abnormal chest sensation, palpitations found to be in atrial fibrillation with RVR.
PLAN:
#Atrial fibrillation
� NATALEE cardioversion 10/30�now in sinus rhythm
� Continue Eliquis
� Metoprolol 12.5 mg daily
� NATALEE 10/30�EF 50%, moderate to severe AI
� Reduce alcohol and caffeine intake
#Thoracic aortic dilation
� Appears to be stable at 5.2 cm on this admission
� Follow-up CT surgery outpatient
� BP control
#Sleep apnea
� Patient has refused CPAP in the past
Follow-up pulmonary outpatient setting as educated of the benefits of it
#Hyperlipidemia
�Follow-up outpatient with cardiology;
More than 30 minutes spent in discharge including
Final examination of the patient
Summarizing hospital stay
Instructions for continuing care to all relevant caregivers
Preparation of discharge records, prescriptions, and referral forms
Total time spent (in minutes): 36
Anticipated Discharge: Today
Subjective/Interval History
-
Date of Service: October 30, 2024
NATALEE cardioversion, back in sinus Rhythm today
Objective Data
-
Labs:
Laboratory Results
10/30/24 10/30/24
05:55 13:00
WBC 5.9
Hgb 15.8
Hct 46.4
Plt Count 243
APTT 122.1 H Pending
Sodium 138
Potassium 4.0
Chloride 111 H
Carbon Dioxide 22
BUN 15
Creatinine 0.8
Glucose 107 H
Calcium 9.1
Total Bilirubin 0.8
AST 21
ALT 15
Alkaline Phosphatase 49
Vital Signs:
Vital Signs
Temp Pulse Resp BP Pulse Ox
97.6 F 54 18 99/64 98
10/30/24 15:38 10/30/24 15:38 10/30/24 15:38 10/30/24 15:36 10/30/24 15:38
I&O
10/29/24 10/30/24 10/31/24
06:59 06:59 06:59
Intake Total 480 / 480
Balance 480 / 480
Review of Systems
-
History Source: Patient
All other systems: Not reviewed unless documented
--- NOTE | 2024-10-30 16:38 | W.DS.TRANS ---
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
-
Discharge Instructions:
Discharge Diagnosis/Procedures Atrial fibrillation
Thoracic aortic dilatation
Diet Low Cholesterol,Low Fat
Activity As tolerated
Blood Work Follow-up LDL outpatient
Instructions:
Stand-Alone Forms:
Changes to Home Medications: Yes
Discharge Medications:
DC Medications w/original date entered in [email or web address]
fbdimsogrim-xyntejptv-avt C-Mn 500 mg-400 mg capsule 2 cap PO DAILY 05/06/17
ginkgo biloba 400 mg capsule 400 mg PO DAILY ##0 09/27/24
omega 5-vzq-hmg-fish oil 1,000 mg (120 mg-180 mg) capsule (Fish Oil) 1 cap PO DAILY ##0 09/27/24
apixaban 5 mg tablet (Eliquis) 5 mg PO BID 30 days #60 tabs 10/30/24
metoprolol succinate 25 mg tablet,extended release 24 hr 12.5 mg (1/2 x 25 mg) PO DAILY 30 days #15 tabs 10/30/24
Home Medication Changes
apixaban 5 mg tablet (Eliquis) 5 mg PO BID 30 days #60 tabs 10/30/24
metoprolol succinate 25 mg tablet,extended release 24 hr 12.5 mg (1/2 x 25 mg) PO DAILY 30 days #15 tabs 10/30/24
Pending Results: No
--- NOTE | 2024-10-30 17:10 | PTCARENOTE ---
Patient discharged to home with spouse. IV and telemetry removed. Discharge teaching provided and patient verbalized understanding.
== END 2024-10-30 17:48 | disposition home or self-care (01) | DRG 310 ==
LOC: IVU 13:33
PROVIDERS: Emergency Medicine; Internal Medicine Cardiovascular Disease; ADMITTING PHYSICIAN Internal Medicine; CONSULT PHYSICIAN Nuclear Medicine Nuclear Cardiology; EMERGENCY PHYSICIAN Emergency Medicine; FAMILY PHYSICIAN Family Medicine
PROC: B24BZZ4 Ultrasonography of Heart with Aorta, Transesophageal (ICD-10-PCS; 2024-10-30)
PROC: 5A2204Z Restoration of Cardiac Rhythm, Single (ICD-10-PCS; 2024-10-30)
DX: I48.91 Unspecified atrial fibrillation (principal); I71.21 Aneurysm of the ascending aorta, without rupture; G47.33 Obstructive sleep apnea (adult) (pediatric); E78.5 Hyperlipidemia, unspecified; Z79.01 Long term (current) use of anticoagulants; Z87.891 Personal history of nicotine dependence; C61 Malignant neoplasm of prostate
CPT/HCPCS: 71046; 71275; 80053; 84443; 84484; 85025; 85730; 92960; 93005; 93306; 93312; 93320; 93325; 96374; 96375; 96376; 99285; Q9967

== ENCOUNTER → 2024-12-31 08:48 | Outpatient (REF) | payer MEDICARE, OTHER, SELFPAY ==
[2024-12-31 09:30] LABS: Hematocrit 48.0 % (39.0-52.0); Hemoglobin 15.8 g/dL (13.0-18.0); Mean Corp Hgb Conc. 32.9 g/dL (33.0-37.0); Mean Corpuscular Volume 94.7 fL (80.0-94.0); Nucleated Red Blood Cells % 0 % (-); Platelet Count 264 10^3/uL (130-400); Red Cell Dist. Width 12.3 % (11.5-14.5)
[2024-12-31 09:38] LABS: INR 1.12; PT 14.7 Sec (11.4-14.6)
[2024-12-31 10:18] LABS: ALT (SGPT) 15 U/L (0-50); AST (SGOT) 21 U/L (17-59); Albumin 4.2 g/dl (3.5-5.0); Alkaline Phosphatase 54 U/L (38-126); Blood Urea Nitrogen 17 mg/dl (9-20); Calcium 9.4 mg/dl (8.4-10.2); Carbon Dioxide 24 mmol/L (22-30); Chloride 107 mmol/L (98-107); Glucose 71 mg/dl (70-99); HDL Cholesterol 57 mg/dl; LDL Cholesterol, Calculated 144 mg/dl; Potassium 4.6 mmol/L (3.5-5.1); Sodium 136 mmol/L (135-145); Total Protein 6.5 g/dl (6.3-8.2); Very Low Density Lipoprotein 18 mg/dl (0-30); eGFR > 60.00
== END ==
LOC: SDSPAT 08:48
PROVIDERS: ATTENDING PHYSICIAN Internal Medicine Interventional Cardiology; FAMILY PHYSICIAN Family Medicine; OTHER PHYSICIAN Nuclear Medicine Nuclear Cardiology
DX: I08.0 Rheumatic disorders of both mitral and aortic valves (principal)
CPT/HCPCS: 36415; 80053; 80061; 85025; 85610

== ENCOUNTER 2025-01-07 06:27 | Day surgery (SDC) | payer MEDICARE, OTHER, SELFPAY ==
[2024-12-31 08:58] VITALS: BMI 26.1
[2025-01-07] VITALS (14 sets, daily range): BP systolic 108–142; BP diastolic 67–81; BMI 26.3
[2025-01-07] MEDS: LOW STRENGTH ASPIRIN 324 MG PO (07:18)
[2025-01-07] MEDS: NSS 279 ML IV (07:19)
--- NOTE | 2025-01-07 09:49 | ITS.CL.CATH ---
Carpet Yarn Winder Operator - Catheterization
Cardiac Catheterization
Procedure Report:
LEFT HEART CATHETERIZATION
Date of Procedure: January 07, 2025
Referring: Dr. Jason Lowe
PROCEDURES:
1. Coronary angiography
INDICATION: Preoperative assessment prior to surgical repair of ascending thoracic aortic aneurysm
ACCESS: Right radial artery, 6 [place] sheath
HEMODYNAMICS : (mmHg)
AO (s/d) : 130/75
CORONARY FINDINGS
DOMINANCE: Right
LEFT MAIN: Normal
LEFT ANTERIOR DESCENDING: The LAD is a large-caliber vessel that arises normally from the left main and runs in the anterior interventricular groove. The LAD has only minor irregularities
CIRCUMFLEX: The circumflex is a large-caliber vessel arising from the left main. The circumflex bifurcates in its midportion into 2 moderate to large caliber daughter branches which have minor irregularities
RIGHT CORONARY ARTERY: Large-caliber vessel with only minor irregularities over its course
VENTRICULOGRAPHY: Not done
SEDATION: 15 minutes of procedural sedation was utilized. An independent senior medical technologist was present to assist with and help manage the patient's level of consciousness and physiologic status.
RADIATION SUMMARY: Fluoro Time (min): 7.1, Dose (mGy): 612, DAP (Gy.cm2) : 50
Closure Device: TR band
CONCLUSIONS
1. Nonobstructive coronary disease
Copy to: Dr. Jason Lowe
[2025-01-07] MEDS: NSS 1000 IV (10:05)
== END 2025-01-07 12:28 | disposition home or self-care (01) ==
LOC: CATH 06:27
PROVIDERS: ATTENDING PHYSICIAN Internal Medicine Interventional Cardiology; FAMILY PHYSICIAN Family Medicine; REFERRING PHYSICIAN Nuclear Medicine Nuclear Cardiology
DX: I71.20 Thoracic aortic aneurysm, without rupture, unspecified (principal); Z01.818 Encounter for other preprocedural examination; I25.10 Atherosclerotic heart disease of native coronary artery without angina pectoris; I48.91 Unspecified atrial fibrillation; E78.5 Hyperlipidemia, unspecified; Z79.01 Long term (current) use of anticoagulants
CPT/HCPCS: 99152; 93454; C1769; C1894; Q9967

== ENCOUNTER → 2025-01-07 08:01 | Outpatient (REF) | payer MEDICARE, OTHER, SELFPAY | LOC: DHSLP 08:01 | PROVIDERS: ATTENDING PHYSICIAN Internal Medicine Critical Care Medicine; FAMILY PHYSICIAN Internal Medicine Cardiovascular Disease | DX: G47.33 Obstructive sleep apnea (adult) (pediatric) (principal) | CPT/HCPCS: 95800 ==

== ENCOUNTER 2025-02-19 04:54 | Inpatient (IN) | payer MEDICARE, OTHER, SELFPAY ==
[2025-02-07 08:45] VITALS: BMI 27.3
[2025-02-07 09:23] LABS: Urine Character Clear (Clear)
[2025-02-07 09:31] LABS: INR 0.99; PT 13.6 Sec (11.4-14.6)
[2025-02-07 09:35] LABS: Hematocrit 47.1 % (39.0-52.0); Hemoglobin 15.3 g/dL (13.0-18.0); Mean Corp Hgb Conc. 32.5 g/dL (33.0-37.0); Mean Corpuscular Volume 97.1 fL (80.0-94.0); Nucleated Red Blood Cells % 0 % (-); Platelet Count 234 10^3/uL (130-400); Red Cell Dist. Width 12.7 % (11.5-14.5)
[2025-02-07 10:07] LABS: ALT (SGPT) 22 U/L (0-50); AST (SGOT) 26 U/L (17-59); Albumin 4.0 g/dl (3.5-5.0); Alkaline Phosphatase 49 U/L (38-126); Blood Urea Nitrogen 13 mg/dl (9-20); Calcium 9.8 mg/dl (8.4-10.2); Carbon Dioxide 29 mmol/L (22-30); Chloride 108 mmol/L (98-107); Estimated Creatinine Clearance 91 ml/min; Glucose 64 mg/dl (70-99); Potassium 4.5 mmol/L (3.5-5.1); Sodium 140 mmol/L (135-145); Total Protein 6.5 g/dl (6.3-8.2); eGFR > 60.00
--- NOTE | 2025-02-07 10:22 | CM ---
spoke to pt in PAT, he is prev indep, lives with is in a 2 story home with 2 steps to enter. we discussed preop Valve sparing aortic root surgery instructions, including driving and lifting restriction. he has a cane and a walker at home if
needed. he has the CT Surgery book, soap and instructions. he is agreeable to a f/u visit from the ct transitional care nurse after dc. cm role explained and all questions answered. plan is for CT Surgery 02/19.
[2025-02-07 11:48] LABS: Glycohemoglobin (HgbA1c) 5.4 % (4.0-5.6)
[2025-02-19] VITALS (20 sets, daily range): BP systolic 87–149; BP diastolic 58–85; BMI 25.8
[2025-02-19] MEDS: MAGNESIUM OXIDE 400 MG PO (05:24)
[2025-02-19] MEDS: PROTONIX 40 MG PO (05:24)
[2025-02-19] MEDS: BACTROBAN 2% OINTMENT 1 APPLIC NASAL ×2 (05:24→20:04)
[2025-02-19] MEDS: LOPRESSOR 12.5 MG PO (05:39)
--- NOTE | 2025-02-19 05:54 | PTCARENOTE ---
pt admitted into CVICU room 2267. pt confirmed 2 showers at home. pt clipped and prepped for CVOR. pt wiped w/ CHG wipes. med rec completed. pre-op meds given. pre-op education provided. sheet music salesperson to CVOR.
--- NOTE | 2025-02-19 06:16 | W.CVOR.SURPR ---
CV[facility] Surgeon Immed Pre Op
-
I have examined this patient prior to performance of the scheduled procedure.
The patient's condition is unchanged from the time of the dictated/written History and
Physical and the patient is able to undergo the scheduled procedure.
VSRR vs Biobentall + LA MAZE + LAAE
[2025-02-19 07:29] LABS: ACT+ - POC 126 Seconds (82-134)
[2025-02-19 07:30] LABS: Urine Character Clear (Clear)
[2025-02-19 07:49] LABS: Urine Squamous Cell 0-2 /LPF (Few); Urine Urothelial Cell 26-30 /LPF (FEW)
[2025-02-19 07:51] LABS: Urine White Cell 0-2 /HPF (0-5)
--- NOTE | 2025-02-19 08:13 | CM ---
Reviewed chart. Mr. Billingsley is in the operating room today. Prior to admission he resides in a two story home with two steps to enter. Prior to admission he was independent with ambulation and adls. He has a single point cane and walker at home. He
has a prescription plan. Medical work-up in progress. The discharge plan is to return home with spouse and a home visit by the Transitional Care Nurse when medically stable.
[2025-02-19 08:24] LABS: ACT+ - POC 632 Seconds (82-134)
[2025-02-19 08:52] LABS: B.E. - POC 0.0 mmol/L; Glucose - POC 81 mg/dl (70-99); HCO3 - POC 25 mmol/L (21-28); Hematocrit - POC 40 % PCV (42-52); Hemodilution- POC No; Hemoglobin Calculated - POC 13.7; Ionized Calcium - POC 1.18 mmol/L (1.15-1.33); Lactate - POC < 0.30 mmol/L (0.36-0.75); O2 Saturation %Calculated-POC 100.0 % (94-98); PCO2 - POC 39 mmHg (35-48); PO2 - POC 434 mmHg (83-108); POC Comment PRE; Potassium - POC 3.9 mmol/L (3.5-5.1); Sodium - POC 137 mmol/L (136-145); Specimen Type - POC Arterial; pH - POC 7.41 (7.35-7.45)
[2025-02-19 09:01] LABS: ACT+ - POC 662 Seconds (82-134)
[2025-02-19 09:33] LABS: ACT+ - POC 594 Seconds (82-134)
[2025-02-19 10:09] LABS: ACT+ - POC 512 Seconds (82-134)
[2025-02-19 10:37] LABS: B.E. - POC 2.3 mmol/L; Glucose - POC 114 mg/dl (70-99); HCO3 - POC 28 mmol/L (21-28); Hematocrit - POC 34 % PCV (42-52); Hemodilution- POC Yes; Hemoglobin Calculated - POC 11.4; Ionized Calcium - POC 1.13 mmol/L (1.15-1.33); Lactate - POC 0.71 mmol/L (0.36-0.75); O2 Saturation %Calculated-POC 99.8 % (94-98); PCO2 - POC 48 mmHg (35-48); PO2 - POC 252 mmHg (83-108); POC Comment CPB; Potassium - POC 5.7 mmol/L (3.5-5.1); Sodium - POC 139 mmol/L (136-145); Specimen Type - POC Arterial; pH - POC 7.37 (7.35-7.45)
[2025-02-19 10:48] LABS: ACT+ - POC 537 Seconds (82-134)
[2025-02-19 11:07] LABS: B.E. - POC -0.6 mmol/L; Glucose - POC 82 mg/dl (70-99); HCO3 - POC 26 mmol/L (21-28); Hematocrit - POC 32 % PCV (42-52); Hemodilution- POC Yes; Hemoglobin Calculated - POC 10.9; Ionized Calcium - POC 1.14 mmol/L (1.15-1.33); Lactate - POC 0.54 mmol/L (0.36-0.75); O2 Saturation %Calculated-POC 99.9 % (94-98); PCO2 - POC 52 mmHg (35-48); PO2 - POC 294 mmHg (83-108); POC Comment CPB; Potassium - POC 4.5 mmol/L (3.5-5.1); Sodium - POC 141 mmol/L (136-145); Specimen Type - POC Arterial; pH - POC 7.31 (7.35-7.45)
[2025-02-19 11:22] LABS: B.E. - POC 2.6 mmol/L; Glucose - POC 89 mg/dl (70-99); HCO3 - POC 28 mmol/L (21-28); Hematocrit - POC 35 % PCV (42-52); Hemodilution- POC Yes; Hemoglobin Calculated - POC 11.8; Ionized Calcium - POC 1.06 mmol/L (1.15-1.33); Lactate - POC < 0.30 mmol/L (0.36-0.75); O2 Saturation %Calculated-POC 99.9 % (94-98); PCO2 - POC 46 mmHg (35-48); PO2 - POC 330 mmHg (83-108); Potassium - POC 5.2 mmol/L (3.5-5.1); Sodium - POC 139 mmol/L (136-145); Specimen Type - POC Arterial; pH - POC 7.40 (7.35-7.45)
[2025-02-19 11:23] LABS: B.E. - POC 1.6 mmol/L; Glucose - POC 106 mg/dl (70-99); HCO3 - POC 28 mmol/L (21-28); Hematocrit - POC 34 % PCV (42-52); Hemodilution- POC Yes; Hemoglobin Calculated - POC 11.7; Ionized Calcium - POC 1.13 mmol/L (1.15-1.33); Lactate - POC < 0.30 mmol/L (0.36-0.75); O2 Saturation %Calculated-POC 99.9 % (94-98); PCO2 - POC 48 mmHg (35-48); PO2 - POC 335 mmHg (83-108); POC Comment CPB; Potassium - POC 5.4 mmol/L (3.5-5.1); Sodium - POC 139 mmol/L (136-145); Specimen Type - POC Arterial; pH - POC 7.37 (7.35-7.45)
[2025-02-19 11:31] LABS: ACT+ - POC 698 Seconds (82-134)
[2025-02-19 11:38] LABS: B.E. - POC -0.0 mmol/L; Glucose - POC 93 mg/dl (70-99); HCO3 - POC 25 mmol/L (21-28); Hematocrit - POC 33 % PCV (42-52); Hemodilution- POC Yes; Hemoglobin Calculated - POC 11.1; Ionized Calcium - POC 1.11 mmol/L (1.15-1.33); Lactate - POC 0.90 mmol/L (0.36-0.75); O2 Saturation %Calculated-POC 99.8 % (94-98); PCO2 - POC 42 mmHg (35-48); PO2 - POC 248 mmHg (83-108); POC Comment WARM; Potassium - POC 4.5 mmol/L (3.5-5.1); Sodium - POC 140 mmol/L (136-145); Specimen Type - POC Arterial; pH - POC 7.38 (7.35-7.45)
[2025-02-19 11:55] LABS: ACT+ - POC 123 Seconds (82-134)
[2025-02-19 12:04] LABS: B.E. - POC 0.5 mmol/L; Glucose - POC 90 mg/dl (70-99); HCO3 - POC 25 mmol/L (21-28); Hematocrit - POC 34 % PCV (42-52); Hemodilution- POC Yes; Hemoglobin Calculated - POC 11.5; Ionized Calcium - POC 1.34 mmol/L (1.15-1.33); Lactate - POC 1.15 mmol/L (0.36-0.75); O2 Saturation %Calculated-POC 99.8 % (94-98); PCO2 - POC 40 mmHg (35-48); PO2 - POC 221 mmHg (83-108); POC Comment POST; Potassium - POC 4.1 mmol/L (3.5-5.1); Sodium - POC 140 mmol/L (136-145); Specimen Type - POC Arterial; pH - POC 7.41 (7.35-7.45)
--- NOTE | 2025-02-19 12:28 | W.PN.CT.SURG ---
CT Surgery Operative Note
-
CARDIAC SURGERY OPERATIVE REPORT
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
Postoperative Diagnosis: Same
Procedure(s) Performed:
1. Standard sternotomy with aortic and right atrial cannulation
2. Harvesting and reimplantation of coronary buttons, left and right
3. Ascending aortic and valve sparing root replacement with reimplantation of the [place] aortic valve [Giancarlo V procedure]
4. Left atrial maze, posterior wall isolation
5. Left atrial appendage exclusion [40 mm clip]
6. Aortic valve leaflet repair with plication stitch at the right coronary cusp at the free margin due to slight prolapse
7. Placement of temporary atrial ventricular pacing wires
8. Transesophageal echocardiography
Date of Surgery: 02/19/2025
Comorbidities:
1. History of atrial fibrillation status post cardioversion
2. 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
3. Sleep apnea on CPAP
4. History of GI bleeding
Attending Surgeon: Jason Lowe MD, MS
Assistants: Chana Euceda PA-C (present and necessary to student assistance counselor, retraction, suction, exposure, suture management, and wound closure under my direction), Yessenia Vargas MD, MPH (did the distal aortic anastomosis)
Anesthesiology: Shane Coy MD and Irlanda Irby CRNA
Scrub and Circulating RNs: Nico Mondragon RN, Theodora Guaman RN
Revenue Director: Dustin Ngo CCP
Anesthesia: GETA
EBL: per perfusion records
Products: None
CPB Time: 195 minutes
Aortic Cross Clamp Time: 172 minutes
Indication(s) for Procedures: This is a 64-year-old male with an aortic root aneurysm measuring up to 5.7 cm in some views. He also has concomitant moderately severe aortic valve insufficiency that is mostly central secondary to splaying of his
sinotubular junction. Given his aneurysm and insufficiency, he was offered surgical intervention in the form of valve sparing root replacement with possible bio Bentall as well as management of his left atrial appendage and left atrium via maze
given his history of atrial fibrillation.
Aortic Valve Description: Relatively normal leaflets, there was some prolapsing of the right coronary cusp after reimplantation. My sinuses were obviously abnormal and thinned out. Left and right coronary buttons were in the appropriate anatomic
positions. After reimplantation of his aortic valve, there was some prolapsing of the right coronary cusp that was managed with plication at the free margin.
Findings: His left ventricular ejection fraction preoperatively 60% with no significant regional wall motion abnormalities. Following surgery his EF remained the same at 60% with no new regional wall motion abnormalities. His aortic valve had at
least moderately severe central aortic insufficiency. His sinuses were excised and the coronary buttons were harvested in the usual fashion. I then dissected deeply down towards the basal ring into the caudal septum isolating the aortic valve
annulus. A total of 6 pledgeted 2-0 Ethibond sutures were placed circumferentially here at each and anterior and each subcommissural triangle anchoring a 30 [address] graft into place. I sized the graft based upon the none left commissural
height and was found to be approximately 30-32. The aortic valve was then reimplanted inside of this Valsalva graft. There was some prolapsing of the right coronary cusp postimplantation and so a 7-0 suture was used to plicate and raise the height
of the right coronary cusp by plicating the free margin. There is good coaptation here testing under pressure. The left and right coronary buttons were implanted in the usual fashion with the right setting much higher on the graft. A left atrial
maze was performed using the encompass clamp isolating the posterior wall. Left atrial appendage was verified to be free of any thrombus or debris preoperatively and found to be totally occlusive postoperatively with no residual left atrial
appendage tissue. At the inclusion the case, his aortic valve insufficiency went from moderately severe to trace. The mean gradient across the reimplanted aortic valve was 3 mmHg, there is no regional wall deficits or dysfunction. Cardiac index
was over 2.0 with no inotropic support. He did not require blood products. He was in his [place] sinus rhythm.
Specimen(s): Aortic sinuses and ascending aortic tissue.
Prosthesis:
1. 30 mm cardio root Valsalva graft, serial #[id number]
2. Bovine pericardium used as gaskets around the coronary buttons and the distal anastomosis, 7 number [id number]
3. 40 mm left atrial appendage clip, serial #[id number]
4. PrevaLeak hemostatic agent, absorbable, serial number [id number]
Description of Procedure: The patient was taken to the operating room. Their identity and procedure to be performed were verified and they were positioned supine on the operating table. Induction via general anesthesia with endotracheal intubation
was performed and central venous access and arterial monitoring were inserted. A preoperative transesophageal echocardiogram was performed to assess cardiac function and valvular function. The patient was then prepped and draped from chin to feet in
a sterile fashion. A preoperative time-out was performed with all members of the team present. A midline chest incision was performed along with median sternotomy. The innominate vein was isolated. Full heparinization was given (a total of 70,000
units). We created a pericardial well. The aortic cannulation site was chosen where it was soft, pliable, and free of calcium. Cannulation was performed with an arterial cannula in the mid arch of the aorta and a triple-stage venous cannula through
the right atrial appendage. The arterial cannula line had an appropriate bounce and correlating pressures with test dosing. The pulmonary artery was away from the aorta to facilitate a clamp site and aortotomy. The ACT was confirmed to be
over 400 and retrograde autologous priming was performed before commencing cardiopulmonary bypass. At this point the SVC was separate away from the RPA and the oblique sinus developed. 3 successful pairs of ablation were performed with the
encompass clamp to form a posterior wall isolation. A left ventricular vent was placed at the right superior pulmonary vein and secured. The aortic cross-clamp was placed after decreasing the flow on the bypass and mean arterial pressure. I then
placed a 12-gauge Angiocath into the ascending thoracic aorta and started to infuse antegrade cardioplegia. A total of 1.2L initial dose of antegrade [place]ido cardioplegia solution was given and planned for re-dosing every 60 minutes as necessary.
There was rapid electro-mechanical arrest of the heart at 400 cc of cardioplegia. Cold slush was placed into a sponge and topically on the RV while we systemically cooled to 34 degrees centigrade.
Once the heart was fully arrested the heart was rotated medially and the left atrial appendage was occluded flush the base with a 40 mm device. Carbon dioxide was used to flood the field. I then incised the aorta at the aneurysmal site and
transected fully. Stay sutures were placed after cutting down towards each commissure using 4-0 Prolene pledgeted sutures. Next, location of both left and right coronary vessels were visualized in the root. The noncoronary sinus was then excised
after performing a deep dissection around the basal ring of the aortic valve. The left main and right coronary buttons were mobilized. 4-0 pledgeted sutures were used to retract the buttons. A cuff of approximately 5 mm of [place] sinus tissue was
left attached to the annulus. A total of 6 pledgeted 2-0 ethibond anchoring sutures were placed along the basal ring at the base of this up, show triangle and the goyo of each sinus. At the membranous septum I placed this suture relatively high
in order to avoid the aneurysmal tissue as well as the bundle. I then sized to a 30 mm Valsalva graft using the left 9 commissural height. The anchoring suture was then brought through the base of the Valsalva graft which was then parachuted into
place. The commissures were then resuspended accordingly in order to not distort the aortic valve leaflets. These were anchored to the Valsalva graft. Next using 4-0 Prolene the left neosinus was then reconstructed with a single suture line.
This was repeated at the right and then noncoronary sinuses. Several [place] pledgeted 5-0 Prolene's were then placed and any sites or I felt there was some bleeding or needed reinforcement. Topical absorbable hemostatic agent was used to seal
the suture lines to prevent needle hole bleeding. An eye cautery was used to first create a small opening to perform left main coronary button anastomosis. The button was then trimmed accordingly and using 5-0 Prolene with a bovine pericardial
gasket, the button was reimplanted toward the [place]-left sinus. Volume was then used to fill the heart to estimate the location for the right coronary button anastomosis. In a similar fashion an eye cautery was used to create a small opening in the
[place]-right sinus and anastomosis was created with 5-0 Prolene running fashion using bovine pericardium as a gasket. There was some prolapse of the right coronary cusp and this was repaired with a 7-0 Prolene suture at the free margin of the right
coronary cusp as a plication. The valve was then holding suction and also appeared competent. The ascending aorta was then resected and the valved conduit was trimmed accordingly. The distal anastomosis was performed with a running 4-0 Prolene in
a single layer using bovine pericardium as a gasket.
De-airing maneuvers were performed and temporary bipolar ventricular pacing wires were placed on the base of the right ventricle and temporary atrial pacing wires at the SVC/Atrial junction. A 12-gauge Angiocath was then inserted through the
ascending aortic graft material for de-airing. The patient was placed in a Trendelenburg position and flows on bypass were lowered. The aortic cross clamp was removed and flows were slowly brought back up. The suture lines appeared hemostatic.
Transesophageal echocardiography revealed trace residual AI and appropriate leaflet function. Once de-airing was satisfactory, the left ventricular vent was removed. After verifying acceptable parameters, we initiated weaning from cardiopulmonary
bypass. Once we were off cardiopulmonary bypass, the venous cannula was clamped and removed. A test dose of protamine was administered and the patient was monitored for any adverse reaction before resuming protamine. Once half of the protamine dose
was delivered, pump suckers were turned off and the systolic blood pressure was lowered for aortic decannulation. The aortic cannula was removed and pursestrings were tied down. All cannulation sites were oversewn with a 4-0 prolene. The suture
lines were inspected and hemostasis was confirmed. Mediastinal hemostasis was obtained. Two 24Fr Cuong drains were placed within the pericardium. The sternum was approximated with 4 #7 single and 3 #8 double stainless steel wires. Fascia was
approximated with #1 vicryl suture. The subcutaneous, dermis and epidermis were closed in layers in a running fashion. The skin wound was cleansed and dressed.
All instrument, sponge, and needle counts were confirmed to be correct x 2 at the end of the operation. The patient was transferred to the cardiac intensive care unit in critical but stable condition.
I, Dr. Jason Lowe, was present, scrubbed for, and performed all critical elements of this procedure.
Jason Lowe MD, MS
Cardiothoracic Surgeon
[facility]
This dictation was created using the [employer] dictation system. Please excuse any grammatical, typographical, or 'sound alike' errors
--- NOTE | 2025-02-19 12:40 | PTCARENOTE ---
Received patient from [facility]. Pt intubated and sedated with 8.0 ETT 24cm at the lip. RAAS -5. PERRLA 3mm brisk. Unresponsive on precedex gtt at 0.5mcg/kg/hr. POX 99%. SIMV 40% 16 550 5/5. No breathing above the vent noted. Lungs clear anteriorly.
Mediastinal chest tubes x2 to 1 atrium to -20 cm suction draining red fluid. Right pleural chest tube to -20cm suction draining red fluid. No air leaks, tidaling, crepitus noted. SB-NSR on tele with rates in the high 50s-low 60s. BP 90s/50s via
maxwell. SBP goal 90-[address] Lowe. Titrating Cardene and Levo per orders. +Rub. Bilateral radial and DP pulses palpable. No edema noted. Epicardial AV wires to back up VVI 30/10/6. CI 2.0. PA pressures low 30s/10s. CVP 9-10. Abdomen soft,
round. Hypoactive BS. De Souza catheter intact draining adequate amounts of punch colored urine. CT POWER REACTOR OPERATOR notified. Sternal incision approximated with skin glue, KAUSHIK. Chest tube sites covered, dressing CDI. Right IJ cordis and swan floated to 48cm. Left
radial maxwell intact with appropriate waveform. All lines flushed, leveled, and zeroed. Right forearm 18g PIV intact. See MAR for medication administration. See worklist for complete nursing assessment. Post op EKG, labs, and CXR completed.
[2025-02-19 12:54] LABS: Glucose - Point of Care 98 mg/dl (70-99)
[2025-02-19 13:04] LABS: B.E. -2.7 mmol/L; HCO3 21.8 mmol/L (21-28); O2 Saturation % 99.0 % (94-98); PCO2 36 mmHg (35-48); PO2 132 mmHg (83-108); Potassium 4.1 mMOL/L (3.5-5.1); Sodium 136 mMOL/L (136-145)
[2025-02-19 13:05] LABS: O2 Therapy vent
[2025-02-19 13:12] LABS: Hematocrit 35.6 % (39.0-52.0); Hemoglobin 12.2 g/dL (13.0-18.0); Platelet Count 135 10^3/uL (130-400)
[2025-02-19 13:13] LABS: INR 1.48; PT 18.2 Sec (11.4-14.6)
[2025-02-19 13:14] LABS: APTT 27.1 Sec (23.4-35.0)
[2025-02-19] MEDS: NSS 500 IV (13:23)
[2025-02-19] MEDS: ANCEF 10 IV ×2 (13:23)
--- NOTE | 2025-02-19 13:26 | W.PN.CARDCBS ---
Addendum entered and electronically signed by Abner hCu MD 02/19/25 15:28:
I saw and examined the patient.
The Skills Instructor's note was reviewed and I agree with the note.
Comment: Briefly, 64-year-old man past medical history of ascending aortic aneurysm and moderate to severe aortic insufficiency who underwent aortic root replacement, aortic valve repair, Maze and left atrial appendage clip earlier today.
Seen in the CVICU postoperatively where he remained intubated and sedated
Was not requiring inotrope or pressor support at the time of my evaluation
Warm and well-perfused on exam
Filling pressures are reasonable based on invasive hemodynamics
Maintaining sinus rhythm by review of telemetry
Agree with current cardiac meds�aspirin, metoprolol, amiodarone
Eventual cardiac rehab
Discussed with nursing and patient's at bedside
Original Note:
Today's Communication / Plan
-
continue post op care
in SR
Impression / Plan
-
Primary Security Systems Administrator: Dr. Oneal
Assessment:
-Aortic root aneurysm with severe aortic insufficiency status post ascending aortic and valve sparing root replacement with reimplantation of [place] aortic valve, left atrial maze, REGINE clip, aortic valve leaflet repair with plication stitch at right
coronary cusp due to slight prolapse 02/19/2025
-Paroxysmal atrial fibrillation
-chronic OAC with eliquis
-PVCs
-EVAN on CPAP
-History of GI bleeding
Echo 10/30/2024: EF 55 to 60%, mild concentric LVH, mild MR, moderate to severe AR with ascending aorta dilatation
Plan:
-status post ascending aortic and valve sparing root replacement with reimplantation of [place] aortic valve, left atrial maze, REGINE clip, aortic valve leaflet repair with plication stitch at right coronary cusp due to slight prolapse 02/19/2025
-intubated, sedated
-on alternating cardene @1, levo@0.5. CI 2.0
-in SR on review of tele. EKG SR
-hgb 12.2
-was on eliquis preop, should resume post op when ok per surgery
-continue post op care
Progress Note - Security Systems Administrator
Subjective
Date of Service: February 19, 2025
intubated, sedated
Objective
Labs:
Labs
Hgb 12.2 g/dL (13.0-18.0) L 02/19/25 12:48
Hct 35.6 % (39.0-52.0) L 02/19/25 12:48
Plt Count 135 10^3/uL (130-400) 02/19/25 12:48
PT 18.2 Sec (11.4-14.6) H 02/19/25 12:48
INR 1.48 02/19/25 12:48
APTT 27.1 Sec (23.4-35.0) 02/19/25 12:48
Sodium 140 mmol/L (135-145) 02/07/25 08:54
Potassium 4.5 mmol/L (3.5-5.1) 02/07/25 08:54
BUN 13 mg/dl (9-20) 02/07/25 08:54
Creatinine 0.9 mg/dL (0.7-1.3) 02/07/25 08:54
Glucose 64 mg/dl (70-99) L 02/07/25 08:54
Vital Signs and I&O:
Vital Signs
Temp Pulse Resp BP Pulse Ox
97.8 F 62 16 87/63 100
02/19/25 13:00 02/19/25 13:10 02/19/25 13:10 02/19/25 13:00 02/19/25 13:10
Vital Signs
Temp Pulse Resp BP Pulse Ox
97.8 F 62 16 87/63 100
02/19/25 13:00 02/19/25 13:10 02/19/25 13:10 02/19/25 13:00 02/19/25 13:10
Intake & Output
02/17/25 02/18/25 02/19/25 02/20/25
07:59 07:59 07:59 07:59
Intake Total 92.8 / 92.8
Output Total 140 / 140
Balance -47.2 / -47.2
Physical Exam
Physical Exam
GEN: intubated, sedated
HEENT: supple, mmm
LUNGS: CTA B/L, no wheezes/rales
CV: Reg, S1/S2, no murmur, + rub
ABD: soft, ND
EXT: No cyanosis, clubbing, edema
NEURO: sedated
SKIN: Warm, pink, dry. No rash. Sternotomy dressing c/d/i. CTs in place
: mcnair in place with punch colored urine
[2025-02-19 13:27] LABS: Blood Urea Nitrogen 16 mg/dl (9-20); Estimated Creatinine Clearance 94 ml/min; Glucose 98 mg/dl (70-99)
--- NOTE | 2025-02-19 13:37 | CON.INTV ---
Consultation
Consultation Request
Date/Time Consultation Requested: 02/19/2025
Date/Time Consultation Performed: 02/19/2025
Requesting Provider: Dr. Lowe
Performing Provider: Dr. Jose Funk
Reason for Consultation: Postoperative ICU care-status post aortic root replacement
Medical History
-
History of Present Illness:
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
Due to progressive shortness of breath-he was deemed candidate for repair.
Admitted to the hospital 02/19/2025-underwent ascending aortic and valve sparing root replacement with reimplantation of [place] aortic valve on 02/19/2025.
Patient currently in the critical care unit where he is intubated, on mechanical ventilation. Recovering from surgery.
Records reviewed.
At this moment comfortable on mechanical ventilation.
Past Medical History
Past Medical History: Other (See assessment and plan)
Social History
Tobacco: Former Smoker (Quit 40 years ago-less than 1 pack/day.)
Alcohol: None (5 to 6 days a week. Around 9 beers per week)
Drug: None
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
Family History
Family History: Reviewed & Not Pertinent
Allergies / Home Medications
Allergies
Allergy/AdvReac Type Severity Reaction Status Date / Time
monosodium glutamate Allergy Nausea Verified 01/07/25 06:42
tree and shrub pollen Allergy congestion Verified 01/07/25 06:42
pectin Allergy Unknown Uncoded 02/05/25 14:22
Home Medications
�Medication �Instructions �Recorded �Confirmed �Last Taken �Type
uytpwhptofi-hwmqncyqk-jrb C-Mn 500 2 cap PO DAILY Supplement 05/06/17 02/19/25 02/11/25 08:00 History
mg-400 mg capsule
ginkgo biloba 400 mg capsule 400 mg PO DAILY Supplement ##0 09/27/24 02/19/25 02/11/25 08:00 History
omega 7-vcd-zml-fish oil 1,000 mg 1 cap PO DAILY Supplement ##0 09/27/24 02/19/25 02/11/25 08:00 History
(120 mg-180 mg) capsule (Fish Oil)
ibuprofen 400 mg tablet 400 mg PO ONCE Pain 02/05/25 02/19/25 02/16/25 22:00 History
turmeric 400 mg capsule 1,000 mg PO DAILY Supplement 02/05/25 02/19/25 02/11/25 08:00 History
apixaban 5 mg tablet (Eliquis) 5 mg PO BID Blood Clot 02/19/25 02/19/25 02/15/25 18:00 History
Prevention/Tx
Review of Systems
-
Unable to Obtain full review of systems at this time due to: Patient Intubation
Vitals / Labs / Diagnostic Testing
Vital Signs
Temp Pulse Resp BP Pulse Ox
97.8 F 62 16 87/63 100
02/19/25 13:00 02/19/25 13:10 02/19/25 13:10 02/19/25 13:00 02/19/25 13:10
Lab Data
02/19/25 12:48
Laboratory Results
02/19/25
12:48
PT 18.2 H
INR 1.48
APTT 27.1
pH 7.39
pCO2 36
pO2 132 H
HCO3 21.8
O2 Delivery Level vent
Diagnostic Testing:
Physical Exam
-
HEENT: Normocephalic
Cardiovascular: S1/S2
Respiratory: Clear, Non-Labored Respirations and Other (Chest tube in place without airleak. No excessive drainage)
GI: Soft and Non Distended
Neurology: Other (Sedated, mechanical ventilation per)
Skin: Warm
General: Comfortable
Assessment
-
Status post: Ascending aortic and valve sparing root replacement with reimplantation of the [place] aortic valve [Giancarlo V procedure]-02/19/2025-Dr. Lowe
Left atrial maze, posterior wall isolation
Left atrial appendage exclusion [40 mm clip]
Aortic valve leaflet repair with plication stitch at the right coronary cusp at the free margin due to slight prolapse
Postoperative mechanical ventilation
Conditions present prior admission:
Atrial fibrillation history of cardioversion-DCCV 10/30/2024
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
Obstructive sleep apnea on CPAP therapy
Prior history of GI bleed
History of prostate cancer
Assessment and plan:
Postoperative day 0
He is doing well postop-currently on mechanical ventilation and appears comfortable.
ABG reviewed: Adequate oxygenation and ventilation per
Continue SIMV mode with no change
Spontaneous breathing trial per protocol once sedation wears off.
Mild anemia noted-no evidence of acute bleeding
Follow H&H serially
Hemodynamics -acceptable currently off vasoactive drugs
Renal function normal
Urine of dark color-De Souza in place.
Follow urinary output.
Chest tube with no excessive drainage-no air leak.
Chest x-ray reviewed: With no pneumothorax or fluid collections.
Remain nothing by mouth
Head of the bed elevation
Glycemic control per protocol
Restart CPAP therapy after extubation.
DVT prophylaxis when safe from the surgical perspective.
Eventually to restart anticoagulation.
Critical care statement: A total of 31�minutes of critical care time was provided for this patient today. This includes management of unstable vital signs, evaluation of the patient at bedside, reviewing the patient�s pertinent medical records
including ventilator settings, arterial blood gases, radiographs, microbiology, laboratory evaluations and��discussion with primary team, critical care nursing, and respiratory therapy.
--- NOTE | 2025-02-19 14:00 | PTCARENOTE ---
CT COLOR DRUM WORKER notified of CI 1.35 SVR 1867. 250 LR bolus administered per orders.
[2025-02-19 14:03] LABS: Glucose - Point of Care 134 mg/dl (70-99)
[2025-02-19] MEDS: LR 250 ML IV ×2 (14:04→14:59)
--- NOTE | 2025-02-19 14:19 | PTCARENOTE ---
Calcium gluconate not given as per CT CDA TEACHER for ionized calcium 1.17.
--- NOTE | 2025-02-19 14:45 | PTCARENOTE ---
Pt awakened to voice. Able to shake head yes/no appropriately. Squeeze hands and wiggle toes.
[2025-02-19 15:00] LABS: Magnesium 3.2 mg/dl (1.6-2.3)
[2025-02-19 15:01] LABS: Glucose - Point of Care 117 mg/dl (70-99)
--- NOTE | 2025-02-19 15:15 | PTCARENOTE ---
Pt bathed with CHG wipes. Pt turned from side to side with no significant dumps from chest tubes. Pt tolerated. New linens applied.
[2025-02-19] MEDS: PACERONE PO (15:37)
[2025-02-19] MEDS: NEURONTIN PO (15:37)
[2025-02-19 15:59] LABS: Glucose - Point of Care 132 mg/dl (70-99)
[2025-02-19 16:29] LABS: B.E. -5.9 mmol/L; HCO3 18.6 mmol/L (21-28); O2 Saturation % 99.3 % (94-98); PCO2 33 mmHg (35-48); PO2 161 mmHg (83-108); Potassium 5.1 mMOL/L (3.5-5.1)
--- NOTE | 2025-02-19 16:35 | PTCARENOTE ---
Cpap ABG reviewed with CT PA. Orders to extubate. RT at bedside, pt extubated to 6L NC at 1635. Pt oriented x4. IS completed 1250ml achieved. Pt's at bedside for update.
[2025-02-19 16:40] LABS: Hematocrit 38.0 % (39.0-52.0); Hemoglobin 12.9 g/dL (13.0-18.0); Platelet Count 166 10^3/uL (130-400)
[2025-02-19] MEDS: CALCIUM GLUCONATE 100 IV (16:40)
[2025-02-19] MEDS: SODIUM BICARBONATE 50 MEQ IV (16:40)
[2025-02-19] MEDS: TORADOL 15 MG IV ×2 (17:57→23:04)
[2025-02-19] MEDS: LOW STRENGTH ASPIRIN 81 MG PO (17:57)
[2025-02-19 18:03] LABS: Glucose - Point of Care 125 mg/dl (70-99)
[2025-02-19 19:59] LABS: Glucose - Point of Care 121 mg/dl (70-99)
[2025-02-19] MEDS: SENOKOT 8.6 MG PO (20:07)
[2025-02-19] MEDS: ANCEF 5 IV (20:07)
--- NOTE | 2025-02-19 20:22 | PTCARENOTE ---
Received patient from previous rn. pt AAOx4, NSR per tele monitor HR 70s. +Rub. Bilateral radial and DP pulses palpable. No edema noted. Epicardial AV wires to back up VVI . POX 99% on 4L NC. Lungs clear diminished at bases. Mediastinal
chest tubes x2 to 1 atrium to -20 cm suction draining red fluid. Right pleural chest tube to -20cm suction draining red fluid. No air leaks, tidaling, crepitus noted. Abdomen soft, round. Hypoactive BS. De Souza catheter intact draining clear yellow
urine. Sternal incision approximated with skin glue, VACUUM SYSTEM TESTER. Chest tube sites covered, dressing CDI. Right IJ cordis and swan floated to 48cm. Left radial maxwell intact with appropriate waveform. All lines flushed, leveled, and zeroed. Right forearm 18g
PIV intact. plan of care discussed and questions encouraged. call shannon within reach. See MAR for medication administration. See worklist for complete nursing assessment and nursing interventions
[2025-02-19] MEDS: TYLENOL 975 MG PO (22:04)
[2025-02-19] MEDS: PACERONE 200 MG PO (22:04)
[2025-02-19] MEDS: NEURONTIN 100 MG PO (22:04)
[2025-02-19 22:10] LABS: Glucose - Point of Care 123 mg/dl (70-99)
[2025-02-20] VITALS (35 sets, daily range): BP systolic 78–134; BP diastolic 49–75; PULSE 79; O2SAT 95–100; BMI 26.4
[2025-02-20] LABS: Glucose - Point of Care 137 mg/dl (70-99)
[2025-02-20] LABS: Glucose - Point of Care 150 mg/dl (70-99)
--- NOTE | 2025-02-20 00:09 | PTCARENOTE ---
pt resting comfortably in bed. no c/o of pain at this time. NSR per tele monitor HR 70s. assessment remains unchanged.
--- NOTE | 2025-02-20 00:26 | W.PN.CT ---
Today's Communication / Plan
-
-pod #1
-no significant issues overnight
-brief runs of PACs overnight. Hx a-fib. Monitor rhythm
-sbp 90-[address] Lowe- liberate BP
-CI 2.59, CO 5.51. Drips: none
-CT outputs: 2 meds 90/205, R pleur 105/245 in 12/24 hrs. Per nursing, R pleur ? rare air leak
-deline
+ rub
-follow Cr - 1.1 today (0.9 on 02/19 and 0.9-1.0 preop)
-d/c insulin
-d/c De Souza
-current meds (ASA, Lopressor, Amio, Mg, Protonix)
-encourage IS, OOB
Assessment / Plan
-
- Aortic root aneurysm with splayed STJ and mildly severe aortic valve insufficiency- s/p Ascending aortic and valve sparing root replacement with reimplantation of the [place] aortic valve [Giancarlo V procedure]; Harvesting and reimplantation of
coronary buttons, left and right; Left atrial maze, posterior wall isolation; Left atrial appendage exclusion [40 mm clip]; Aortic valve leaflet repair with plication stitch at the right coronary cusp at the free margin due to slight prolapse by
Chrissy on 02/19/25, pod #1
- Intraop NATALEE: LVEF preop and postop 60% with no regional wma. Left atrial appendage was verified to be free of any thrombus or debris preoperatively and found to be totally occlusive postoperatively with no residual left atrial appendage tissue.
At the end of the case, his aortic valve insufficiency went from moderately severe to trace. The mean gradient across the reimplanted aortic valve was 3 mmHg, there is no regional wall deficits or dysfunction.
- History of atrial fibrillation, status post cardioversion- on Eliquis preop
- Aortic root aneurysm greater than 5.0 centimeters with concomitant aortic valve insufficiency, moderately severe
- Sleep apnea on CPAP
- History of GI bleeding
- Acute postop blood loss anemia- stable, no transfusion
- Acute postop atelectasis
- Acute postop hypovolemia with subsequent hypervolemia
- Suspected acute postop pericarditis/+rub
Discussed patient care with: Nursing and Care Team
Subjective
-
Date of Service: February 20, 2025
Objective Data
-
PT 18.2 Sec (11.4-14.6) H 02/19/25 12:48
INR 1.48 02/19/25 12:48
APTT 27.1 Sec (23.4-35.0) 02/19/25 12:48
Vital Signs
Vital Signs
Temp Pulse Resp BP Pulse Ox
100.1 F 77 17 92/65 98
02/20/25 00:00 02/20/25 00:00 02/20/25 00:00 02/19/25 23:00 02/20/25 00:00
CT Intake/Output/Weight
02/19/25 02/19/25 02/20/25
06:59 18:59 06:59
Intake Total 939.1 / 1141.7 202.6 / 1141.7
Output Total 680 / 1180 500 / 1180
Balance 259.1 / -38.3 -297.4 / -38.3
SaO2: 98
Physical Exam
-
General: Awake and AOx3
Cardiovascular: Regular rate & rhythm, No Murmurs and Rub
Respiratory: Decreased Breath Sounds
Sternum: Stable
Incision: Clean, Dry and Intact
Extremities: No Edema (1+ DPs b/l)
Abdomen: soft, nontender, nondistended, + decreased bowel sounds
Data Reviewed
-
Lab Results: Results Reviewed
Medications: Active Meds Reviewed
Chest X-Ray: Report Reviewed and Image Reviewed
ECG: Report Reviewed and Image Reviewed
[2025-02-20 01:28] LABS: B.E. -5.0 mmol/L; HCO3 19.8 mmol/L (21-28); O2 Saturation % 99.0 % (94-98); PCO2 35 mmHg (35-48); PO2 127 mmHg (83-108); Potassium 4.2 mMOL/L (3.5-5.1)
[2025-02-20 01:29] LABS: O2 Therapy Room Air 2L
[2025-02-20 01:32] LABS: Hematocrit 34.7 % (39.0-52.0); Hemoglobin 11.7 g/dL (13.0-18.0); Mean Corp Hgb Conc. 33.7 g/dL (33.0-37.0); Mean Corpuscular Volume 93.8 fL (80.0-94.0); Platelet Count 167 10^3/uL (130-400); Red Cell Dist. Width 12.6 % (11.5-14.5)
[2025-02-20 01:55] LABS: Blood Urea Nitrogen 25 mg/dl (9-20); Calcium 8.0 mg/dl (8.4-10.2); Carbon Dioxide 22 mmol/L (22-30); Chloride 111 mmol/L (98-107); Estimated Creatinine Clearance 77 ml/min; Glucose 130 mg/dl (70-99); Magnesium 2.3 mg/dl (1.6-2.3); Potassium 4.4 mmol/L (3.5-5.1); Sodium 138 mmol/L (135-145); eGFR > 60.00
[2025-02-20 02:08] LABS: Glucose - Point of Care 131 mg/dl (70-99)
[2025-02-20] MEDS: CALCIUM GLUCONATE 100 IV (02:09)
[2025-02-20] MEDS: SODIUM BICARBONATE 50 MEQ IV (02:10)
[2025-02-20 04:04] LABS: Glucose - Point of Care 142 mg/dl (70-99)
--- NOTE | 2025-02-20 04:20 | PTCARENOTE ---
AM labs and EKG obtained. Gatito removed. VSS.
[2025-02-20 04:53] LABS: B.E. -2.6 mmol/L; HCO3 21.7 mmol/L (21-28); O2 Saturation % 97.6 % (94-98); PCO2 35 mmHg (35-48); PO2 81 mmHg (83-108)
[2025-02-20 04:55] LABS: O2 Therapy 2L
[2025-02-20] MEDS: ANCEF 5 IV ×2 (05:16→12:52)
[2025-02-20] MEDS: TORADOL 15 MG IV (05:17)
[2025-02-20] MEDS: TYLENOL 975 MG PO ×3 (06:05→21:46)
[2025-02-20 06:06] LABS: Glucose - Point of Care 133 mg/dl (70-99)
--- NOTE | 2025-02-20 07:46 | W.PN.ANS.POP ---
Anesthesia Post Operative
- Anesthesia Post Op Note
Vital Signs Stable-See Nursing Note: Yes (Levo maintained )
Airway Patent: Yes
Adequate Pain Control: Yes
Change in Mental Status: No
Current Postoperative Nausea & Vomiting: No
Anesthesia Complications: No
General Anesthetic Recall: No
Unplanned Admission: No
Post Op Hydration Adequate: Yes
--- NOTE | 2025-02-20 08:00 | PTCARENOTE ---
Resumed care of patient. Walking rounds completed with previous RN. Pt assessed while he was sitting in the chair. Pt alert and oriented x4. Denies pain, shortness of breath, and nausea. DENG with equal strength throughout. NSR on tele with rates in
the 70s. BP 104/57 via cuff 109/49 via maxwell. +Rub. Bilateral radial and DP pulses palpable. No edema noted. POX 96% on RA. Lungs diminished in the bases. No cough noted. IS encouraged-2000ml achieved. Mediastinal chest tubes x2 y-sited to 1 atrium
to -20cm suction draining serosanguinous fluid. Right pleural chest tube to -20cm suction draining serosanguinous fluid. +1 intermittent air leak in right pleural, CT MEDICAL SERVICE TECHNICIAN notified. Abdomen soft, nontender. Hypoactive BS. Pt reports not passing gas at
this time. DTV post mcnair catheter removal. Sternal incision approximated, KAUSHIK. Ecchymosis noted to top of incision. CT dressing CDI. Right IJ cordis intact. Left radial maxwell with appropriate waveform, flushed, leveled, and zeroed. Left forearm 18g
PIV intact. See MAR for medication administration. See worklist for complete nursing assessment. Plan of care reviewed and patient in agreement.
[2025-02-20 08:09] LABS: Glucose - Point of Care 137 mg/dl (70-99)
[2025-02-20] MEDS: NEURONTIN 100 MG PO ×3 (09:12→21:46)
[2025-02-20] MEDS: MAGNESIUM OXIDE 400 MG PO ×2 (09:12→19:12)
[2025-02-20] MEDS: LOW STRENGTH ASPIRIN 81 MG PO (09:12)
[2025-02-20] MEDS: PROTONIX 40 MG PO (09:12)
[2025-02-20] MEDS: PACERONE 200 MG PO ×3 (09:12→21:46)
[2025-02-20] MEDS: BACTROBAN 2% OINTMENT 1 APPLIC NASAL ×2 (09:12→19:12)
[2025-02-20] MEDS: SENOKOT 8.6 MG PO ×2 (09:12→19:12)
[2025-02-20 09:56] LABS: Glucose - Point of Care 137 mg/dl (70-99)
--- NOTE | 2025-02-20 10:05 | W.PN.CARDCBS ---
Addendum entered and electronically signed by Hermelindo Oneal DO 02/20/25 11:54:
I saw and examined the patient.
The Operator Engineer's note was reviewed and I agree with the note.
Comment:
Plan:
Continues to do well
Cont post op care
Remains sinus rhythm
CT management as per CT surgery
H/H stable.
Resume Eliquis once ok with CT surgery
Discussed with nursing.
Original Note:
Today's Communication / Plan
-
continue post op care
in SR
Impression / Plan
-
Primary Call Center Representative: Dr. Oneal
Assessment:
-Aortic root aneurysm with severe aortic insufficiency status post ascending aortic and valve sparing root replacement with reimplantation of [place] aortic valve, left atrial maze, REGINE clip, aortic valve leaflet repair with plication stitch at right
coronary cusp due to slight prolapse 02/19/2025
-Paroxysmal atrial fibrillation
-chronic OAC with eliquis
-PVCs
-EVAN on CPAP
-History of GI bleeding
Echo 10/30/2024: EF 55 to 60%, mild concentric LVH, mild MR, moderate to severe AR with ascending aorta dilatation
Plan:
-status post ascending aortic and valve sparing root replacement with reimplantation of [place] aortic valve, left atrial maze, REGINE clip, aortic valve leaflet repair with plication stitch at right coronary cusp due to slight prolapse 02/19/2025
-doing well
-off pressors
-in SR with PVCs, couplets, and brief run of atach on review of tele overnight. continue po amio, BB
-hgb 11.7
-was on eliquis preop, should resume post op when ok per surgery
-continue post op care, IS/OOB
Progress Note - Call Center Representative
Subjective
Date of Service: February 20, 2025
reports pain controlled.
Objective
Labs:
02/20/25 01:13
02/20/25 01:13
Labs
Hgb 11.7 g/dL (13.0-18.0) L 02/20/25 01:13
Hct 34.7 % (39.0-52.0) L 02/20/25 01:13
Plt Count 167 10^3/uL (130-400) 02/20/25 01:13
PT 18.2 Sec (11.4-14.6) H 02/19/25 12:48
INR 1.48 02/19/25 12:48
APTT 27.1 Sec (23.4-35.0) 02/19/25 12:48
Sodium 138 mmol/L (135-145) 02/20/25 01:13
Potassium 4.4 mmol/L (3.5-5.1) 02/20/25 01:13
BUN 25 mg/dl (9-20) H 02/20/25 01:13
Creatinine 1.1 mg/dL (0.7-1.3) 02/20/25 01:13
Glucose 130 mg/dl (70-99) H 02/20/25 01:13
Vital Signs and I&O:
Vital Signs
Temp Pulse Resp BP Pulse Ox
98.9 F 79 16 95/52 92
02/20/25 09:00 02/20/25 10:00 02/20/25 10:00 02/20/25 10:00 02/20/25 10:00
Vital Signs
Temp Pulse Resp BP Pulse Ox
98.9 F 79 16 95/52 92
02/20/25 09:00 02/20/25 10:00 02/20/25 10:00 02/20/25 10:00 02/20/25 10:00
Intake & Output
02/18/25 02/19/25 02/20/25 02/21/25
07:59 07:59 07:59 07:59
Intake Total 1419.3 / 1433.1 273.8 / 273.8
Output Total 1565 / 1600 60 / 60
Balance -145.7 / -166.9 213.8 / 213.8
Physical Exam
Physical Exam
GEN: No distress, awake, alert, oriented x3. sitting in chair
HEENT: supple, anicteric, mmm, eomi
LUNGS: CTA B/L, no wheezes
CV: Reg, S1/S2, no murmur, + rub
ABD: soft, BS+, NT/ND
EXT: No cyanosis, clubbing. trace edema of B/L LE
NEURO: Gross non-focal
SKIN: Warm, pink, dry. No rash. Sternotomy dressing c/d/i. CTs in place
[2025-02-20] MEDS: NSS IV (10:52)
--- NOTE | 2025-02-20 12:00 | PTCARENOTE ---
Pt reassessed. NSR with rates in the 70s-80s. BP 95/65 via cuff, CT MINING MACHINERY ASSEMBLER aware. 250mL LR administered per verbal order. Right pleural chest tube d/c as per verbal order Dr. Lowe. Pt tolerated. Bladder scanned for 221ml. pt does not have urge to void.
Blood sugar remains under 140. Kelsie, cordis, and PIV intact. Pt denies pain, nausea, shortness of breath.
[2025-02-20 12:04] LABS: Glucose - Point of Care 113 mg/dl (70-99)
[2025-02-20] MEDS: LOPRESSOR PO (12:10)
[2025-02-20] MEDS: LR 250 ML IV (12:53)
[2025-02-20 13:03] LABS: Glucose - Point of Care 112 mg/dl (70-99)
--- NOTE | 2025-02-20 13:44 | CM ---
Reviewed chart. Met with Mr. Billingsley to review discharge plans. He states he is feeling well. He states prior to admission he resides with his spouse in a two story home with two steps to enter. He states he has a full flight of steps to get to
bedroom/full bathroom. He states he has a powder room on the first floor. He states prior to admission he was independent with ambulation and adls. He states he does not have any DME in the home. He states he has a prescription plan and uses [facility]. He states he spouse will be home to assist in her care if needed. We reviewed a home visit by the Transitional Care Nurse. He is agreeable to a home visit. The discharge plan is to return home with his spouse and a home visit by the
Transitional Care Nurse when medically stable.
--- NOTE | 2025-02-20 13:54 | W.PN.INTV ---
Today's Communication / Plan
Recommendations
Renal continue postoperative care
Increase activity as able
Continue analgesia
Continue cardiac management
Follow chest tube output
Daily chest x-ray
Sign off
Assessment
-
Status post: Ascending aortic and valve sparing root replacement with reimplantation of the [place] aortic valve [Giancarlo V procedure]-02/19/2025-Dr. Lowe
Left atrial maze, posterior wall isolation
Left atrial appendage exclusion [40 mm clip]
Aortic valve leaflet repair with plication stitch at the right coronary cusp at the free margin due to slight prolapse
Postoperative mechanical ventilation
Conditions present prior admission:
Atrial fibrillation history of cardioversion-DCCV 10/30/2024
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
Obstructive sleep apnea on CPAP therapy
Prior history of GI bleed
History of prostate cancer
Assessment and plan:
Postoperative day 1
Extubated without difficulties
Off supplemental oxygen
Clear lung exam
Encourage incentive spirometry
Continue to increase activity per protocol as tolerated
Mild anemia noted-no evidence of acute bleeding
Follow H&H serially
Hemodynamics -excellent per
Renal function normal
Adequate urinary output
Chest tube with no excessive drainage-no air leak.
Chest x-ray reviewed: With no pneumothorax or fluid collections.
Advance diet as tolerated
Head of the bed elevation
Glycemic control per protocol
Respiratory CPAP. Nocturnally
DVT prophylaxis when safe from the surgical perspective.
Eventually to restart anticoagulation.
-
No additional critical care recommendation
Sign off
Subjective Dataa
Subjective Data
Date of Service:
Date of Service: February 20, 2025
Chief Complaint: [employer] Internship Follow Up (Status post: Ascending aortic and valve sparing root replacement with reimplantation of the [place] aortic valve)
Subjective:
Patient sitting out of bed in the chair comfortably.
Denies any significant pain
Denies shortness of breath at rest
Review of Systems
Cardiopulmonary: Dyspnea (none at rest) and Dyspnea on Exertion (n)
GI: Abdominal Pain (n), Nausea (n) and Vomiting (n)
Objective Data
Data Reviewed
Vital Signs / I&O / Oxygen:
Vital Signs
Temp Pulse Resp BP Pulse Ox
97.9 F 81 16 91/68 96
02/20/25 12:00 02/20/25 13:30 02/20/25 12:00 02/20/25 13:00 02/20/25 13:30
Intake and Output
02/19/25 02/20/25 02/21/25
06:59 06:59 06:59
Intake Total 1405.5 / 1419.3 577.6 / 577.6
Output Total 1565 / 1565 380 / 380
Balance -159.5 / -145.7 197.6 / 197.6
SaO2 [CPAP/PSV] 100
SaO2 [SIMV] 99
SaO2 96
Nasal Cannula flow liters per 2
minute
Physical Exam
General: Comfortable
HEENT: Normocephalic
Cardiovascular: S1-S2
Respiratory: Non-Labored Respirations and Chest Tube (No airleak)
GI: Soft and Non Distended
Neurology: Awake and Alert
Skin: Warm
Labs/Micro/Reports
Lab Data
02/20/25 01:13
02/20/25 01:13
Laboratory Results
02/19/25 02/20/25 02/20/25
16:22 01:13 04:08
pH 7.36 7.36 7.40
pCO2 33 L 35 35
pO2 161 H 127 H 81 L
HCO3 18.6 L 19.8 L 21.7
O2 Delivery Level Room air 2l 2l
--- NOTE | 2025-02-20 16:30 | PTCARENOTE ---
Pt reassessed. NSR with rates in the 70s. BP 99/67. POX 97% on RA. Surgical sites stable. CT output WNL. Pt voided post mcnair removal sen urine. Cordis, PIV intact. No other acute changes.
[2025-02-20] MEDS: ROXICODONE 5 MG PO (19:12)
--- NOTE | 2025-02-20 19:49 | PTCARENOTE ---
received pt from previous rn. Pt AAOx4, NSR per tele monitor HR 80s. VSS. +rub, +pulses, epicardial AV wires to back up VVI . pox 97% onRA, lungs clear diminished in bases, Right pleural chest tube to -20cm suction draining red fluid. No air
leaks, tidaling, crepitus noted. + bs. pt voiding clear yellow urine in urinal. sternal incision approximated with skin glue, KAUSHIK. CT dressing c/d/i. PIV intact. RIJ cordis infusing KVO. plan of care discussed and questions encouraged. call shannon
within reach. See MAR for medication administration. See worklist for complete nursing assessment and nursing interventions
[2025-02-20] MEDS: LOPRESSOR 12.5 MG PO (21:46)
[2025-02-21] VITALS (16 sets, daily range): BP systolic 90–109; BP diastolic 51–79; PULSE 77; O2SAT 96–98; BMI 27.1
--- NOTE | 2025-02-21 00:08 | PTCARENOTE ---
pt resting comfortably in bed. VSS. NSR per tele monitor assessment remains unchanged
--- NOTE | 2025-02-21 04:24 | PTCARENOTE ---
AM labs obtained. VSS. NSr per tele monitor assessment remains unchanged
[2025-02-21 04:57] LABS: Hematocrit 33.5 % (39.0-52.0); Hemoglobin 11.1 g/dL (13.0-18.0); Mean Corp Hgb Conc. 33.1 g/dL (33.0-37.0); Mean Corpuscular Volume 95.4 fL (80.0-94.0); Platelet Count 167 10^3/uL (130-400); Red Cell Dist. Width 12.9 % (11.5-14.5)
[2025-02-21 05:25] LABS: Blood Urea Nitrogen 26 mg/dl (9-20); Calcium 8.1 mg/dl (8.4-10.2); Carbon Dioxide 30 mmol/L (22-30); Chloride 102 mmol/L (98-107); Estimated Creatinine Clearance 84 ml/min; Glucose 120 mg/dl (70-99); Magnesium 2.5 mg/dl (1.6-2.3); Potassium 4.6 mmol/L (3.5-5.1); Sodium 132 mmol/L (135-145); eGFR > 60.00
--- NOTE | 2025-02-21 07:38 | W.PN.CT ---
Today's Communication / Plan
-
-pod #2
-no significant issues overnight
-tolerated BB
-CTs output: 2 meds 105/305 in 12/24 hrs
-current meds (ASA, Lopressor, Amio, Mg, Protonix)
-encourage IS, OOB
Assessment / Plan
-
- Aortic root aneurysm with splayed STJ and mildly severe aortic valve insufficiency- s/p Ascending aortic and valve sparing root replacement with reimplantation of the [place] aortic valve [Giancarlo V procedure]; Harvesting and reimplantation of
coronary buttons, left and right; Left atrial maze, posterior wall isolation; Left atrial appendage exclusion [40 mm clip]; Aortic valve leaflet repair with plication stitch at the right coronary cusp at the free margin due to slight prolapse by
Lowe on 02/19/25, pod #2
- Intraop NATALEE: LVEF preop and postop 60% with no regional wma. Left atrial appendage was verified to be free of any thrombus or debris preoperatively and found to be totally occlusive postoperatively with no residual left atrial appendage tissue.
At the end of the case, his aortic valve insufficiency went from moderately severe to trace. The mean gradient across the reimplanted aortic valve was 3 mmHg, there is no regional wall deficits or dysfunction.
- History of atrial fibrillation, status post cardioversion- on Eliquis preop
- Aortic root aneurysm greater than 5.0 centimeters with concomitant aortic valve insufficiency, moderately severe
- Sleep apnea on CPAP
- History of GI bleeding
- Acute postop blood loss anemia- stable, no transfusion
- Acute postop atelectasis
- Acute postop hypovolemia with subsequent hypervolemia
- Suspected acute postop pericarditis/+rub
Discussed patient care with: Nursing and Care Team
Subjective
-
Date of Service: February 21, 2025
Objective Data
-
Lab Results
02/21/25 04:32
02/21/25 04:32
PT 18.2 Sec (11.4-14.6) H 02/19/25 12:48
INR 1.48 02/19/25 12:48
APTT 27.1 Sec (23.4-35.0) 02/19/25 12:48
Vital Signs
Vital Signs
Temp Pulse Resp BP Pulse Ox
98.2 F 78 14 102/72 95
02/21/25 04:00 02/21/25 07:00 02/21/25 00:00 02/21/25 04:30 02/21/25 04:30
CT Intake/Output/Weight
02/20/25 02/21/25 02/21/25
18:59 06:59 18:59
Intake Total 1077.6 / 1127.6 50 / 1127.6
Output Total 460 / 1480 1020 / 1480
Balance 617.6 / -352.4 -970 / -352.4
SaO2: 95
Physical Exam
-
General: Awake and AOx3
Cardiovascular: Regular rate & rhythm, No Murmurs and Rub
Respiratory: Decreased Breath Sounds
Sternum: Stable
Incision: Clean, Dry and Intact
Abdomen: soft, nontender, nondistended, + decreased bowel sounds
Extremities: No Edema (1+ DPs b/l)
Data Reviewed
-
Lab Results: Results Reviewed
Medications: Active Meds Reviewed
Chest X-Ray: Report Reviewed and Image Reviewed
ECG: Report Reviewed and Image Reviewed
--- NOTE | 2025-02-21 08:00 | PTCARENOTE ---
Assumed care of patient from sports anchor RN. AAO x 3 . Assist x 1 oob to chair. SR on monitor. Epicardial wire to back up 30. Room air 94%. Chest tubes x 2 to - 20 cm suction. No air leak noted. Abdomen wnl, passing flatus. Voiding w/o
issue. Trace lower extremity edema. Pulses palpable. Plan for day discussed.
[2025-02-21] MEDS: PACERONE 200 MG PO ×3 (08:31→21:11)
[2025-02-21] MEDS: NEURONTIN 100 MG PO ×3 (08:31→21:12)
[2025-02-21] MEDS: PROTONIX 40 MG PO (08:31)
[2025-02-21] MEDS: LOPRESSOR 12.5 MG PO ×2 (08:31→21:11)
[2025-02-21] MEDS: TYLENOL 975 MG PO ×2 (08:31→21:11)
[2025-02-21] MEDS: ROXICODONE 5 MG PO (08:31)
[2025-02-21] MEDS: BACTROBAN 2% OINTMENT 1 APPLIC NASAL ×2 (08:32→21:12)
[2025-02-21] MEDS: LOW STRENGTH ASPIRIN 81 MG PO (08:32)
[2025-02-21] MEDS: SENOKOT 8.6 MG PO ×2 (08:32→21:11)
[2025-02-21] MEDS: MAGNESIUM OXIDE PO (08:32)
--- NOTE | 2025-02-21 11:11 | W.PN.CARDCBS ---
Addendum entered and electronically signed by Abelino Yang MD 02/21/25 17:35:
I saw and examined the patient.
The Sprigger's note was reviewed and I agree with the note.
Comment:
GEN: No distress, awake, Ox3
HEENT: supple, anicteric, mmm
LUNGS: CTA, no wheezes/rales
CV: Reg, S1/S2,no murmur/rub
ABD: soft, BS+, NT/ND
EXT: No edema
NEURO: Gross non-focal
SKIN: No rash
PLan:
Doing well status post root replacement and aortic valve repair.
Continue amiodarone. Remains in sinus rhythm.
Continue metoprolol. Restart Eliquis once tubes are out stable from CT surgery standpoint.
Original Note:
Today's Communication / Plan
-
continue post op care
in SR
OOB/IS
Impression / Plan
-
Primary Shop Mechanic: Dr. Oneal
Assessment:
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
coronary cusp due to slight prolapse 02/19/2025
-Paroxysmal atrial fibrillation
-chronic OAC with eliquis
-PVCs
-EVAN on CPAP
-History of GI bleeding
Echo 10/30/2024: EF 55 to 60%, mild concentric LVH, mild MR, moderate to severe AR with ascending aorta dilatation
Plan:
-status post ascending aortic and valve sparing root replacement with reimplantation of [place] aortic valve, left atrial maze, REGINE clip, aortic valve leaflet repair with plication stitch at right coronary cusp due to slight prolapse 02/19/2025
-remains in SR on review of tele overnight with 2 4-5beat runs of NSVT, asymptomatic. continue po amio, BB. K/mag stable
-was on eliquis preop, should resume post op when ok per surgery
-continue post op care, IS/OOB
Progress Note - Shop Mechanic
Subjective
Date of Service: February 21, 2025
reports some post op discomfort
Objective
Labs:
02/21/25 04:32
02/21/25 04:32
Labs
Hgb 11.1 g/dL (13.0-18.0) L 02/21/25 04:32
Hct 33.5 % (39.0-52.0) L 02/21/25 04:32
Plt Count 167 10^3/uL (130-400) 02/21/25 04:32
PT 18.2 Sec (11.4-14.6) H 02/19/25 12:48
INR 1.48 02/19/25 12:48
APTT 27.1 Sec (23.4-35.0) 02/19/25 12:48
Sodium 132 mmol/L (135-145) L 02/21/25 04:32
Potassium 4.6 mmol/L (3.5-5.1) 02/21/25 04:32
BUN 26 mg/dl (9-20) H 02/21/25 04:32
Creatinine 1.0 mg/dL (0.7-1.3) 02/21/25 04:32
Glucose 120 mg/dl (70-99) H 02/21/25 04:32
Vital Signs and I&O:
Vital Signs
Temp Pulse Resp BP Pulse Ox
98.5 F 79 16 103/64 94
02/21/25 08:00 02/21/25 09:00 02/21/25 08:00 02/21/25 07:55 02/21/25 10:00
Vital Signs
Temp Pulse Resp BP Pulse Ox
98.5 F 79 16 103/64 94
02/21/25 08:00 02/21/25 09:00 02/21/25 08:00 02/21/25 07:55 02/21/25 10:00
Intake & Output
02/19/25 02/20/25 02/21/25 02/22/25
07:59 07:59 07:59 07:59
Intake Total 1419.3 / 1433.1 1113.8 / 1483.8 370 / 370
Output Total 1565 / 1600 1480 / 1780 300 / 300
Balance -145.7 / -166.9 -366.2 / -296.2 70 / 70
Physical Exam
Physical Exam
GEN: No distress, awake, alert, oriented x3. sitting in chair
HEENT: supple, anicteric, mmm, eomi
LUNGS: CTA B/L, no wheezes
CV: Reg, S1/S2, no murmur
ABD: soft, BS+, NT/ND
EXT: No cyanosis, clubbing. trace edema of B/L LE
NEURO: Gross non-focal
SKIN: Warm, pink, dry. No rash. Sternotomy incision c/d/i. CT in place
--- NOTE | 2025-02-21 12:00 | PTCARENOTE ---
Resting in bed during rounds. Nausea improved. Pain also improved. VSS Assessment otherwise unchanged from prior.
[2025-02-21] MEDS: NSS IV (13:23)
--- NOTE | 2025-02-21 14:33 | CM ---
Reviewed chart. Met with Mr. Billingsley to review discharge plans. He states he is feeling well. He ambulated today. He states he is feeling well. Prior to admission he resides with his spouse in a two story home with two steps to enter. He has a full
flight of steps to get to bedroom/full bathroom. He has a powder room on the first floor. Prior to admission he was independent with ambulation and adls. He does not have any DME in the home. He has a prescription plan and uses [facility].
His spouse will be home to assist in her care if needed. We reviewed a home visit by the Transitional Care Nurse. He is agreeable to a home visit. The discharge plan is to return home with his spouse and a home visit by the Transitional Care
Nurse when medically stable.
[2025-02-21] MEDS: TYLENOL PO (16:43)
--- NOTE | 2025-02-21 16:49 | PTCARENOTE ---
Epicardial wires pulled by CT PA. pt on one hour of bedrest. VS Q 15 minutes per protocol. Chest tubes x 2 removed after , pt tolerated w/o issue. VSS. Assessment otherwise unchanged from prior.
[2025-02-21 18:51] LABS: Hepatitis C Antibody Negative (Negative)
--- NOTE | 2025-02-21 23:38 | PTCARENOTE ---
ax3 sinus room air afebrile- ambulates in room. all incisions intact
[2025-02-22] VITALS (8 sets, daily range): BP systolic 96–109; BP diastolic 62–87; PULSE 71; O2SAT 98; BMI 27.0
--- NOTE | 2025-02-22 01:12 | W.PN.CT ---
Today's Communication / Plan
-
No issues�overnight�
Current meds (ASA, Lopressor, Amio, Mg, Protonix)�
Encourage IS, OOB�
Consider DC cordis�
Consider restarting Eliquis�
Plan for DC�
Assessment / Plan
-
- Aortic root aneurysm with splayed STJ and mildly severe aortic valve insufficiency- s/p Ascending aortic and valve sparing root replacement with reimplantation of the [place] aortic valve [Giancarlo V procedure]; Harvesting and reimplantation of
coronary buttons, left and right; Left atrial maze, posterior wall isolation; Left atrial appendage exclusion [40 mm clip]; Aortic valve leaflet repair with plication stitch at the right coronary cusp at the free margin due to slight prolapse by
Lowe on 02/19/25, pod #3
- Intraop NATALEE: LVEF preop and postop 60% with no regional wma. Left atrial appendage was verified to be free of any thrombus or debris preoperatively and found to be totally occlusive postoperatively with no residual left atrial appendage tissue.
At the end of the case, his aortic valve insufficiency went from moderately severe to trace. The mean gradient across the reimplanted aortic valve was 3 mmHg, there is no regional wall deficits or dysfunction.
- History of atrial fibrillation, status post cardioversion- on Eliquis preop
- Aortic root aneurysm greater than 5.0 centimeters with concomitant aortic valve insufficiency, moderately severe
- Sleep apnea on CPAP
- History of GI bleeding
- Acute postop blood loss anemia- stable, no transfusion
- Acute postop atelectasis
- Acute postop hypovolemia with subsequent hypervolemia
- Suspected acute postop pericarditis/+rub
Subjective
-
Date of Service: February 22, 2025
Objective Data
-
PT 18.2 Sec (11.4-14.6) H 02/19/25 12:48
INR 1.48 02/19/25 12:48
APTT 27.1 Sec (23.4-35.0) 02/19/25 12:48
Vital Signs
Vital Signs
Temp Pulse Resp BP Pulse Ox
98.6 F 71 16 96/62 98
02/21/25 23:17 02/22/25 00:00 02/21/25 16:00 02/22/25 00:00 02/21/25 21:40
CT Intake/Output/Weight
02/21/25 02/21/25 02/22/25
06:59 18:59 06:59
Intake Total 50 / 1127.6 790 / 1170 380 / 1170
Output Total 1020 / 1480 350 / 700 350 / 700
Balance -970 / -352.4 440 / 470 30 / 470
SaO2: 98
Physical Exam
-
General: Awake
Cardiovascular: Regular rate & rhythm
Respiratory: Clear
Sternum: Stable
Incision: Clean, Dry and Intact
Extremities: Edema +1
[2025-02-22 04:20] LABS: Hematocrit 31.3 % (39.0-52.0); Hemoglobin 10.3 g/dL (13.0-18.0); Mean Corp Hgb Conc. 32.9 g/dL (33.0-37.0); Mean Corpuscular Volume 95.4 fL (80.0-94.0); Platelet Count 153 10^3/uL (130-400); Red Cell Dist. Width 12.6 % (11.5-14.5)
[2025-02-22 04:40] LABS: Blood Urea Nitrogen 16 mg/dl (9-20); Calcium 7.9 mg/dl (8.4-10.2); Carbon Dioxide 28 mmol/L (22-30); Chloride 103 mmol/L (98-107); Estimated Creatinine Clearance 106 ml/min; Glucose 111 mg/dl (70-99); Magnesium 2.4 mg/dl (1.6-2.3); Potassium 4.5 mmol/L (3.5-5.1); Sodium 131 mmol/L (135-145); eGFR > 60.00
[2025-02-22] MEDS: TYLENOL 975 MG PO (05:39)
--- NOTE | 2025-02-22 08:00 | PTCARENOTE ---
pt received from previous RN, oriented, OOB in chair. SR on the monitor, HR 60-70s. SBP 100s. palpable pulses, trace generalized edema. pt on RA, 96-98% POX. lungs clear. IS encouraged. pt abdomen s/n, denies n/v. +BS. diet tolerated. voids.
ambulates independently. surgical sites intact. RIJ cordis maintained. PIV. see worklist for VS, I&O, and assessment.
--- NOTE | 2025-02-22 09:30 | W.PN.CARDCBS ---
Addendum entered and electronically signed by Abelino Yang MD 02/22/25 11:31:
I saw and examined the patient.
The Motor Expert's note was reviewed and I agree with the note.
Comment:
GEN: No distress, awake, Ox3
HEENT: supple, anicteric, mmm
LUNGS: CTA, no wheezes/rales
CV: Reg, S1/S2, no gallop, murmur
ABD: soft, BS+, NT/ND
EXT: No edema
NEURO: Gross non-focal
SKIN: No rash
Plan:
Doing well. Remains in sinus rhythm. Hemoglobin stable.
Likely for discharge today.
Continue Eliquis and metoprolol
Original Note:
Today's Communication / Plan
-
continue post op care
in SR
plan for DC today
Impression / Plan
-
Primary Mover Helper: Dr. Oneal
Assessment:
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
coronary cusp due to slight prolapse 02/19/2025
-Paroxysmal atrial fibrillation
-chronic OAC with eliquis
-PVCs
-EVAN on CPAP
-History of GI bleeding
Echo 10/30/2024: EF 55 to 60%, mild concentric LVH, mild MR, moderate to severe AR with ascending aorta dilatation
Plan:
-status post ascending aortic and valve sparing root replacement with reimplantation of [place] aortic valve, left atrial maze, REGINE clip, aortic valve leaflet repair with plication stitch at right coronary cusp due to slight prolapse 02/19/2025
-remains in SR on review of tele overnight. continue po amio while admitted. started on toprol 25mg daily.
-was on eliquis preop, being restarted tonight
-continue post op care, IS/OOB
-planned for DC today
-OP cardiac follow up arranged
-d/w nursing, CT surg MEDICAL CLAIMS SPECIALIST
Progress Note - Mover Helper
Subjective
Date of Service: February 22, 2025
Feeling well. Plan for discharge today
Objective
Labs:
02/22/25 04:03
02/22/25 04:03
Labs
Hgb 10.3 g/dL (13.0-18.0) L 02/22/25 04:03
Hct 31.3 % (39.0-52.0) L 02/22/25 04:03
Plt Count 153 10^3/uL (130-400) 02/22/25 04:03
PT 18.2 Sec (11.4-14.6) H 02/19/25 12:48
INR 1.48 02/19/25 12:48
APTT 27.1 Sec (23.4-35.0) 02/19/25 12:48
Sodium 131 mmol/L (135-145) L 02/22/25 04:03
Potassium 4.5 mmol/L (3.5-5.1) 02/22/25 04:03
BUN 16 mg/dl (9-20) 02/22/25 04:03
Creatinine 0.8 mg/dL (0.7-1.3) 02/22/25 04:03
Glucose 111 mg/dl (70-99) H 02/22/25 04:03
Vital Signs and I&O:
Vital Signs
Temp Pulse Resp BP Pulse Ox
98.7 F 69 18 100/68 96
02/22/25 07:54 02/22/25 07:51 02/22/25 07:54 02/22/25 07:51 02/22/25 07:54
Vital Signs
Temp Pulse Resp BP Pulse Ox
98.7 F 69 18 100/68 96
02/22/25 07:54 02/22/25 07:51 02/22/25 07:54 02/22/25 07:51 02/22/25 07:54
Intake & Output
02/20/25 02/21/25 02/22/25 02/23/25
07:59 07:59 07:59 07:59
Intake Total 1419.3 / 1433.1 1113.8 / 1483.8 1560 / 1560
Output Total 1565 / 1600 1480 / 1780 1000 / 1000
Balance -145.7 / -166.9 -366.2 / -296.2 560 / 560
Physical Exam
Physical Exam
GEN: No distress, awake, alert, oriented x3. sitting in chair
HEENT: supple, anicteric, mmm, eomi
LUNGS: Few crackles LLB, no wheezes
CV: Reg, S1/S2, no murmur
ABD: soft, BS+, NT/ND
EXT: No cyanosis, clubbing. trace edema of B/L LE
NEURO: Gross non-focal
SKIN: Warm, pink, dry. No rash. Sternotomy incision c/d/i.
[2025-02-22] MEDS: NEURONTIN 100 MG PO (09:42)
[2025-02-22] MEDS: BACTROBAN 2% OINTMENT 1 APPLIC NASAL (09:42)
[2025-02-22] MEDS: PROTONIX 40 MG PO (09:42)
[2025-02-22] MEDS: SENOKOT 8.6 MG PO (09:42)
[2025-02-22] MEDS: TOPROL XL 25 MG PO (09:42)
[2025-02-22] MEDS: LOW STRENGTH ASPIRIN 81 MG PO (09:42)
[2025-02-22] MEDS: PACERONE 200 MG PO (09:42)
[2025-02-22] MEDS: LASIX 40 MG IV (09:43)
[2025-02-22] MEDS: LOPRESSOR PO (09:53)
[2025-02-22] MEDS: NSS IV (11:17)
--- NOTE | 2025-02-22 12:10 | PTCARENOTE ---
pt VSS, no changes in assessment. ECHO completed, PHONG joya dc'd. pt completed stairs w/ CR and ambulated in hallway. 2VCXR completed. no c/o pain or SOB.
--- NOTE | 2025-02-22 12:14 | W.DCSUMMARY ---
Discharge Summary
Discharge Data
Date of Admission: 02/19/25
Date of Discharge: 02/22/25
-
Pending Results: No
Hospital Course
Primary care physician:
Dr. Giancarlo Ballesteros
Outpatient yarn spinner:
Dr. Oneal
Inpatient consultants:
DCA, loan associate
Procedures:
1. Ascending aortic and valve sparing root replacement with reimplantation of the [place] aortic valve [Giancarlo V procedure]; Harvesting and reimplantation of coronary buttons, left and right; Left atrial maze, posterior wall isolation; Left atrial
appendage exclusion [40 mm clip]; Aortic valve leaflet repair with plication stitch at the right coronary cusp at the free margin due to slight prolapse by Dr. Lowe on 02/19/25
Primary Diagnosis:
1. Aortic root aneurysm with splayed STJ and mildly severe aortic valve insufficiency,
Secondary Diagnoses:
1. History of atrial fibrillation status post cardioversion
2. 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
3. Sleep apnea on CPAP
4. History of GI bleeding
5. Acute postop hypovolemia with subsequent hypervolemia
HPI: 64-year-old male with an aortic root aneurysm measuring up to 5.7 cm in some views. He also has concomitant moderately severe aortic valve insufficiency that is mostly central secondary to splaying of his sinotubular junction. Given his
aneurysm and insufficiency, he was offered surgical intervention in the form of valve sparing root replacement with possible bio Bentall as well as management of his left atrial appendage and left atrium via maze given his history of atrial
fibrillation. He presented electively on 02/[address] Lowe.
Hospital course:
Patient was electively admitted on 02/[address] Lowe. Postoperatively he returned to the CVICU on Precedex, Levophed, and insulin infusions. Precedex was weaned off and patient was extubated that night. On 02/20 postoperative day 1,
patient was weaned off Levophed. He was given 500 mL of fluid, midodrine, and calcium was repleted for some mild hypotension. De Souza catheter was removed and patient voided without issue. Blood pressure remained stable throughout the day and
beta-blockers were started. On 02/21 postoperative day 2, epicardial wires were removed along with chest tubes. He ambulated in the hallways without issue. On 02/22 postoperative day 3, repeat echocardiogram was stable showed peak/mean gradients
are 6/3mmHg. he was given 40 mg of IV Lasix and Cordis IV catheter was removed. Eliquis was resumed. Patient was deemed stable for discharge home.
Home medication changes:
see below
Discharge Plan
-
Patient Disposition: Home (Routine Discharge)
Discharge Diagnosis/Procedures: Ascending aortic and valve sparing root replacement with reimplantation of the [place] aortic valve [Giancarlo V procedure]; Harvesting and reimplantation of coronary buttons, left and right; Left atrial maze, posterior
wall isolation; Left atrial appendage exclusion [40 mm clip]; Aortic valve leaflet repair with plication stitch at the right coronary cusp at the free margin due to slight prolapse by Dr. Lowe on 02/19/25
Condition: Good
Diet: 2 Gram Sodium and Restrict fluids to 64 oz
Activity: No strenuous activity
Driving Restrictions: Not until seen by your Dr
Bathing Restrictions: OK to Shower
Blood Work: bmp in one week
Other Services: Cardiac Rehab
Specialty Instructions: Weigh Daily- Call MD for wt gain/loss 3 lbs overnight/5 lbs in 1 week
Activity Restrictions/Additional Instructions:
ACTIVITY:
-No strenuous activity: no heavy lifting, pushing, pulling anything over 15 pounds for one month
-continue to use stairs as tolerated
DRIVING RESTRICTIONS:
-No driving for one month or until approved by your surgeon
WOUND CARE:
-Shower daily. Use soap & water.
-No lotions, creams or powders on incision area.
DIET:
-continue a low fat/low cholesterol diet.
-IF you are diabetic, continue carb controlled diet.
CARDIAC REHAB:
-Please make appointment to start in 5-6 weeks with your local hospital program. (See Cardiac Rehabilitation Discharge Booklet).
SPECIALTY INSTRUCTIONS:
-Weigh yourself daily. Call your physician for any weight gain/loss of 3 lbs overnight or 5 lbs in one week.
-REPORT any clicking noise or uneven appearance of your sternum to your surgeon immediately.
-If you smoke, you are instructed to quit. The [place] smoking hotline phone number is [phone]
Referrals:
CT Transitional Care Nurse [Outside] - in one to two days
Referral Note:
The Cardiothoracic Transitional Care Nurse will call you to set up a visit in 1-2 days.
[facility] [Outside] - 03/27/25 1:00 pm
Referral Note: Cardiac Rehab Orientation appointment is on 03/27/25 (tue) at 1:00 pm
The Cardiac Rehab gym is located on the first floor of the [facility].
Giancarlo Ballesteros MD [Family Provider, Family Practice] - in four to six weeks
Referral Note: Please make an appointment in four to six weeks.
Mary Rico CRNP [Specified Professional Personl, Cardiology] - 04/02/25 10:00 am
Jason Lowe MD [Active, Cardiac Surgery] - 03/25/25 2:00 pm
Prescriptions:
New
acetaminophen 325 mg Tablet
650 mg PO Q4HPRN PRN (Reason: mild pain,headache,temp >101F ) Qty: 0 0RF
aspirin 81 mg Tablet,Chewable
81 mg PO DAILY Qty: 1 0RF
metoprolol succinate 25 mg Tablet Extended Release 24 Hr
25 mg PO DAILY Qty: 60 1RF
oxycodone 5 mg Tablet
2.5 mg PO Q6HPRN PRN (Reason: severe pain) Qty: 10 0RF
furosemide [Lasix] 20 mg tablet
20 mg PO DAILY Qty: 7 0RF
Rx Instructions:
Take daily for 7 days, then stop
potassium chloride 10 mEq capsule, extended release
10 meq PO DAILY Qty: 7 0RF
Continued
Eliquis 5 mg tablet
5 mg PO BID
Held
pglcwieivmt-thfnweqrf-cgb C-Mn 1 CAP capsule
2 cap PO DAILY
Hold Instructions: Resume on 03/08/25.
Discontinued
ginkgo biloba 400 mg Capsule
400 mg PO DAILY Qty: 0
omega 8-scq-aim-fish oil [Fish Oil] 1,000 (120-180) mg Capsule
1 cap PO DAILY Qty: 0
ibuprofen [Motrin] 400 mg Tablet
400 mg PO ONCE
turmeric 400 mg Capsule
1,000 mg PO DAILY
Discharge Orders:
Discharge Patient (As Directed); Ordered 02/22/25
Ordered By: Heather Lund
Care Plan Goals
Care Plan Goals:
Problem: Readiness for enhanced knowledge related to diagnosis and treatment plan
Goal: Understand your diagnosis and treatment plan needs, including medications if applicable.
Instructions: Know your diagnosis, underlying causes and treatment plan options, including medications if applicable. Consult with your health care team to learn about your diagnosis and treatment plan, including medications if applicable.
Discharge Date and Time
Discharge Date/Time: 02/22/25 13:45
Print Language: MEXICAN
--- NOTE | 2025-02-22 12:19 | CM ---
Reviewed chart. Reviewed chart. Prior to admission he resides with his spouse in a two story home with two steps to enter. He has a full flight of steps to get to bedroom/full bathroom. He has a powder room on the first floor. Prior to admission
he was independent with ambulation and adls. He does not have any DME in the home. He has a prescription plan and uses [facility]. His spouse will be home to assist in her care if needed. The discharge plan is to return home with his spouse
and a home visit by the Transitional Care Nurse when medically stable.
--- NOTE | 2025-02-22 13:21 | PN.CDI ---
CDI
- -
CDI:
Physician Documentation Request
Admit Date: 02/19/25 04:[address] team,
Please review the following and provide your response in the progress notes.
Clinical Indicators:
Pt admitted for ortic root aneurysm with splayed STJ and mildly severe aortic valve insufficiency.
Laboratory Tests
02/21/25 02/22/25
04:32 04:03
Sodium 132 L 131 L
Based on the above, could you clarify in the progress notes, the appropriate diagnosis, if significant, that supports the above lab abnormalities and additional evaluation, monitoring and/or treatment rendered:
Hyponatremia
Insignificant abnormal lab values
Other
Use of terms such as suspected, likely, concern for, or probable (associated with a specific diagnosis that is being evaluated, monitored, or treated as if it exists) are acceptable and can be coded in the inpatient setting, when documented at the
time of discharge.
Thank you,
Marilin Bobo RN, BSN
CDI Specialist
[place] text
Please use your independent medical judgment in providing your response.
--- NOTE | 2025-02-22 13:45 | PTCARENOTE ---
pt discharged home, discharge instructions reviewed w/ patient, questions answered. IV and tele dc'd. pt showered, dressed self. pt picked up by daughter Abi, left w/ belongings.
--- NOTE | 2025-02-25 09:16 | W.PN.UPDATE ---
Update Note
Progress Note Update
CDI Inquiry: suspected hyponatremia secondary to acute postoperative hypervolemia
== END 2025-02-22 13:45 | disposition home or self-care (01) | DRG 317 ==
LOC: CVICU 04:54
PROVIDERS: Anesthesiology; Physician Assistant Medical; ADMITTING PHYSICIAN Thoracic Surgery (Cardiothoracic Vascular Surgery); CONSULT PHYSICIAN Internal Medicine Critical Care Medicine; FAMILY PHYSICIAN Family Medicine; OTHER PHYSICIAN Internal Medicine Cardiovascular Disease
PROC: 02580ZZ Destruction of Conduction Mechanism, Open Approach (ICD-10-PCS; 2025-02-19)
PROC: 02L70CK Occlusion of Left Atrial Appendage with Extraluminal Device, Open Approach (ICD-10-PCS; 2025-02-19)
PROC: 5A1221Z Performance of Cardiac Output, Continuous (ICD-10-PCS; 2025-02-19)
PROC: 02QF0ZZ Repair Aortic Valve, Open Approach (ICD-10-PCS; 2025-02-19)
PROC: B24BZZ4 Ultrasonography of Heart with Aorta, Transesophageal (ICD-10-PCS; 2025-02-19)
PROC: [UNRECOGNIZED PROCEDURE] (2025-02-19)
PROC: 02RX0JZ Replacement of Thoracic Aorta, Ascending/Arch with Synthetic Substitute, Open Approach (ICD-10-PCS; 2025-02-19)
DX: Q25.43 Congenital aneurysm of aorta (principal); D62 Acute posthemorrhagic anemia; E87.1 Hypo-osmolality and hyponatremia; J98.11 Atelectasis; I30.8 Other forms of acute pericarditis; I35.1 Nonrheumatic aortic (valve) insufficiency; I48.0 Paroxysmal atrial fibrillation; G47.33 Obstructive sleep apnea (adult) (pediatric); E86.1 Hypovolemia; I95.9 Hypotension, unspecified; E87.70 Fluid overload, unspecified; D64.9 Anemia, unspecified; Z87.891 Personal history of nicotine dependence; Z79.01 Long term (current) use of anticoagulants; Z85.46 Personal history of malignant neoplasm of prostate
CPT/HCPCS: 33259; 36415; 71045; 71046; 80048; 80053; 81003; 81015; 82248; 82330; 82565; 82805; 82810; 82947; 82962; 83036; 83735; 84132; 84302; 84520; 85014; 85018; 85025; 85027; 85049; 85610; 85730; 86803; 86850; 86900; 86901; 86920; 87070; 88305; 88313; 93005; 93308; 93312; 93320; 93321; 93325; 93880; 94002; C1768; P9047

== ENCOUNTER → 2025-03-01 10:18 | Outpatient (REF) | payer MEDICARE, OTHER, SELFPAY ==
[2025-03-01 13:42] LABS: Blood Urea Nitrogen 16 mg/dl (9-20); Calcium 9.2 mg/dl (8.4-10.2); Carbon Dioxide 29 mmol/L (22-30); Chloride 105 mmol/L (98-107); Glucose 94 mg/dl (70-99); Potassium 5.0 mmol/L (3.5-5.1); Sodium 138 mmol/L (135-145); eGFR > 60.00
== END ==
LOC: REG 10:18
PROVIDERS: ATTENDING PHYSICIAN Thoracic Surgery (Cardiothoracic Vascular Surgery); FAMILY PHYSICIAN Family Medicine
DX: R79.89 Other specified abnormal findings of blood chemistry (principal)
CPT/HCPCS: 36415; 80048

== ENCOUNTER 2025-04-12 08:34 | Outpatient (RCR) | payer MEDICARE, OTHER, SELFPAY | END 2025-04-12 23:59 | disposition home or self-care (01) | LOC: CRHB 08:34 | PROVIDERS: ATTENDING PHYSICIAN Nuclear Medicine Nuclear Cardiology; FAMILY PHYSICIAN Family Medicine | DX: Z95.2 Presence of prosthetic heart valve (principal) | CPT/HCPCS: G0422; G0423 ==

== ENCOUNTER 2025-05-15 08:47 | Outpatient (RCR) | payer MEDICARE, OTHER, SELFPAY | END 2025-05-15 23:59 | disposition home or self-care (01) | LOC: CRHB 08:47 | PROVIDERS: ATTENDING PHYSICIAN Nuclear Medicine Nuclear Cardiology; FAMILY PHYSICIAN Family Medicine | DX: Z95.2 Presence of prosthetic heart valve (principal) | CPT/HCPCS: G0422; G0423 ==